=== PATIENT | female | born 1990 | race Caucasian/White ===

== ENCOUNTER → 2017-03-18 | Outpatient (CLI) | payer BC ==
[~2017-03-18] MED LIST: BCPILLS PO; ESCI1TAB10 PO; LISI-461 PO
== END | disposition home or self-care (01) ==
LOC: C.PAPS 14:48
PROVIDERS: ATTEND Physician Assistant
DX: Z01.419 Encounter for gynecological examination (general) (routine) without abnormal findings (principal)

== ENCOUNTER → 2018-01-09 | Outpatient (CLI) | payer OTHER ==
[2018-01-09 13:47] LABS: BASO % 0.3 %; BASO ABS # 0.02 K/uL (0-0.2); EOS % 1.2 %; EOS ABS # 0.09 K/uL (0-0.5); HEMATOCRIT 38.8 % (37-47); HEMOGLOBIN 13.2 g/dL (12.0-16.0); IG# 0.02 K/uL (0.00-0.02); LYMPH % 34.7 %; LYMPH ABS # 2.62 K/uL (1.2-3.4); MEAN CELL VOLUME 88.4 fL (80-100); MEAN CORPUSCULAR HEMOGLOBIN 30.1 pg (25-34); MEAN PLATELET VOLUME 9.1 fL (7.4-10.4); MONO % 7.7 %; MONO ABS # 0.58 K/uL (0.11-0.59); NEUT % 55.8 %; NEUT ABS # 4.22 K/uL (1.4-6.5); PLATELET COUNT 355 K/uL (130-400); RED CELL DISTRIBUTION WIDTH CV 13.4 % (11.5-14.5); RED CELL DISTRIBUTION WIDTH SD 43.4 fL (36.4-46.3); WHITE BLOOD COUNT 7.55 K/uL (4.8-10.8)
[2018-01-09 14:37] LABS: ALBUMIN 3.8 gm/dl (3.4-5.0); ALT/SGPT 21 U/L (12-78); AST/SGOT 20 U/L (15-37); BLOOD UREA NITROGEN 9 mg/dl (7-18); CALCIUM 8.8 mg/dl (8.5-10.1); CARBON DIOXIDE 26 mmol/L (21-32); CREATININE 0.77 mg/dl (0.60-1.20); GLUCOSE 81 mg/dl (70-99); POTASSIUM 3.9 mmol/L (3.5-5.1); SODIUM 136 mmol/L (136-145)
[2018-01-09 14:48] LABS: ALKALINE PHOSPHATASE 85 U/L (45-117); CHOLESTEROL 173 mg/dl (0-200); LDL CHOLESTEROL CALCULATED 96 mg/dl; TOTAL PROTEIN 7.6 gm/dl (6.4-8.2)
== END | disposition home or self-care (01) ==
LOC: C.LAB1850 12:25
PROVIDERS: ATTEND Neuromusculoskeletal Medicine & OMM
DX: Z00.00 Encounter for general adult medical examination without abnormal findings (principal); I10 Essential (primary) hypertension; E66.9 Obesity, unspecified

== ENCOUNTER 2022-03-05 07:29 | Inpatient (IN) ==
[2022-03-05] MEDS ORDERED: OXYTOCIN 30 UNITS/500 ML BAG IV PRN ×2 (08:07)
[2022-03-05 08:35] LABS: Hematocrit (blood only) 33.4 % (37-47); Hemoglobin 11.1 g/dL (12.0-16.0); Mean Corpuscular Hemoglobin 28.6 pg (25-34); Mean Corpuscular Hgb Conc 33.2 g/dL (32-36); Mean Corpuscular Volume 86.1 fL (80-100); Mean Platelet Volume 9.4 fL (7.4-10.4); Platelet Count 294 K/uL (130-400); RDW Coefficient of Variation 14.7 % (11.5-14.5); RDW Standard Deviation 45.6 fL (36.4-46.3); Red Blood Count 3.88 M/uL (4.2-5.4); White Blood Count 10.93 K/uL (4.8-10.8)
[2022-03-05 08:59] LABS: Creatinine Clr Calc Pharmacy 168.7 ml/min; Est GFR (African American) 137.6 ml/min; Est GFR (Non-African American) 118.7 ml/min
--- NOTE | 2022-03-05 09:15 | History & Physical Report ---
Date of Service March 05, 2022 Assessment & Plan (1) Insulin controlled gestational diabetes mellitus (GDM) during : (2) Chronic hypertension affecting : (3) Hypothyroid in , antepartum: Plan: 31 y/o at 38 4/7 wga presents for IOL for cHTN VSS Fetus cat 1 Labor - will start pit cHTN on meds - PET labs normal today, continue labetalol A2GDM - q1h BG to start, can space out to q2 if normal after few hours GBS neg epidural PRN Admission and Anticipated Discharge Date Admission Date: March 05, 2022 History of Present Illness Chief Complaint: IOL Primary Care Provider: Keyona Pyle MD 31 y/o at 38 4/7 presents for IOL cHTN on meds. Also c/b A2GDM, obesity, hypothyroid. 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 Hx: G1 SAB 2019 G2 current monthly cycles on metformin 02/2020 neg octest Denies hx STIs Allergies Allergy/AdvReac Type Severity Reaction Status Date / Time No Known Drug Allergies Allergy Verified 03/04/22 09:38 Home Medications Medication Instructions Recorded Confirmed Type prenat.vits,maria luisa,[id number] 1 tab PO DAILY 08/13/21 03/05/22 History acetone (urine) test (Ketone Urine #50 ea 09/07/21 03/04/22 Rx Test) blood sugar diagnostic (OneTouch #150 ea 09/07/21 03/04/22 Rx Verio test strips) blood-glucose meter (OneTouch #1 ea 09/07/21 03/04/22 Rx Verio Reflect Meter) lancets 33 gauge (OneTouch Delica #150 ea 09/07/21 03/04/22 Rx Plus Lancet) aspirin 81 mg tablet,delayed 81 mg PO DAILY 10/02/21 03/05/22 History release (Adult Low Dose Aspirin) levothyroxine 75 mcg tablet 75 mcg PO DAILY #90 tab 10/22/21 03/05/22 Rx (Synthroid) labetalol 100 mg tablet 100 mg PO DAILY #90 tab 12/06/21 03/05/22 Rx pen needle, diabetic 32 gauge x #100 ea 01/17/22 03/04/22 Rx " (BD Ultra-Fine Ely Pen Needle) escitalopram oxalate 20 mg tablet 20 mg PO DAILY #90 tab 02/12/22 03/05/22 Rx albuterol sulfate 90 mcg/actuation See Rx Instructions INHALATION 03/04/22 03/05/22 History aerosol inhaler .INHALE 1 TO 2 PUFFS PRN insulin NPH isoph U-100 human 100 40 unit SUBCUT .qHS 03/04/22 03/05/22 History unit/mL (3 mL) subcutaneous pen (Novolin N Flexpen) Patient History Medical History Anxiety Asthma Depression with anxiety History of chicken pox History of PCOS Hypertension Prediabetes Surgical History H/O wisdom tooth extraction History of incision and drainage Pilonidal cyst Family History Father Hypertension Mother Anxiety Pre-diabetes Thyroid disease Grandfather Myocardial infarction Grandmother Myocardial infarction Brother No problems noted. 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 Beliefs That Will Affect Care: Tenriism marital status: marital status details: Isaak Martinez (33) [phone] Current Living Situation: Spouse Current Living Situation Comment: Isaak- current occupational status: employed 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 Other Information That Helps Us Care for You: No Feels Safe at Home: Yes Safety Concerns: Feels Safe At This Time Childhood Exposure to Second-Hand Smoke: No Dental Care, Regularly: Yes Physical Activity Frequency: 3-4 Times per Week Seatbelt Use: always Sunscreen Use: Yes Assistive Devices: None Physical Exam Genitourinary: OB Exam Abdomen: + vertex (confirmed by BSUS) and + estimated weight (7-8) Manual OB Exam: + cervical dilation 3 cm, + cervical effacement 50% and + station -2 OB Exam Monitor Tracing: + external FHT monitor used, + external uterine monitor used (irreg ctx) and + category I (130/mod/+accel/-decel) Results & Data ([facility]) Vital Signs (Past 12 Hours) Vital Signs Temp Pulse Resp BP 03/05/22 08:00 95 H 131/82 03/05/22 07:51 98.6 F 18 Laboratory Results OB Labs: Blood Type O Positive 08/20/21 Antibody Screen NEGATIVE 08/20/21 Hemoglobin 11.7 g/dL (11.7-15.5) 01/15/22 Hematocrit 36.1 % (35.0-45.0) 01/15/22 Mean Corpuscular Volume 89.4 fL (80-100) 08/20/21 Platelet Count 445 K/uL (130-400) H 08/20/21 Rubella IgG Antibody Immune (Immune) 08/20/21 Rapid Plasma Reagin Nonreactive (Nonreactive) 08/20/21 Hepatitis B Surface Antigen Neg (Neg) 08/20/21 HIV (1&2) Ab and P24 Ag, 4th Gener Neg (Neg) 08/20/21 Maternal Serum Alpha Fetoprotein 29.9 ng/mL 10/04/21 OB Optional Labs: Chlamydia trachomatis RNA NOT DETECTED (NOT DETECTED) 08/20/21 Neisseria gonorrhoeae RNA NOT DETECTED (NOT DETECTED) 08/20/21 Thyroid Stimulating Hormone (TSH) 1.690 uIu/ml (0.300-4.500) 08/20/21 Alpha Fetoprotein Triple Screen SEE NOTE 10/04/21 Labs Reviewed: low risk cfdna neg cf/sma GBS neg Diagnostic Findings 02/08 EFW 84%, post plac Coding Level of Care Code None Diagnoses Insulin controlled gestational diabetes mellitus (GDM) during O24.414 Chronic hypertension affecting O10.919 Hypothyroid in , antepartum O99.280; E03.9
[2022-03-05] MEDS: LACTATED RINGER'S 1,000 ML IV PRN ×5 (09:22→23:13)
[2022-03-05] MEDS ORDERED: ePHEDrine sulfate 50 MG/ML AMP ONE (11:22)
[2022-03-05] MEDS ORDERED: BUPIVACAINE 0.25% 30 ML VIAL ONE ×2 (11:23→21:26)
[2022-03-05] MEDS ORDERED: fentaNYL citrate 100 MCG/2 ML VIAL ONE ×3 (11:23→21:26)
[2022-03-05] MEDS ORDERED: SODIUM CHLORIDE 0.9% INJ 10 ML VIAL ONE (11:23)
[2022-03-05] MEDS ORDERED: fentaNYL 2MCG/ML ROPIVACAINE 1.25MG/ML 100 ML BAG EPI ONE (11:24)
--- NOTE | 2022-03-05 12:39 | Anesthesiology Consultation ---
Date of Service March 05, 2022 Assessment & Plan Chart Review Chart Review: Acceptable Risk for Labor Epidural Consults Requested none History Height/Weight Height: 5 ft 5 in Weight: 122.924 kg Allergies Allergy/AdvReac Type Severity Reaction Status Date / Time No Known Drug Allergies Allergy Verified 03/04/22 09:38 Medications Home Medications Medication Instructions Recorded Confirmed Last Taken prenat.vits,maria luisa,[id number]-[id number] 1 tab PO DAILY 08/13/21 03/05/22 03/05/22 06:00 acetone (urine) test (Ketone Urine #50 ea 09/07/21 03/04/22 Unknown Test) blood sugar diagnostic (OneTouch #150 ea 09/07/21 03/04/22 Unknown Verio test strips) blood-glucose meter (OneTouch #1 ea 09/07/21 03/04/22 Unknown Verio Reflect Meter) lancets 33 gauge (OneTouch Delica #150 ea 09/07/21 03/04/22 Unknown Plus Lancet) aspirin 81 mg tablet,delayed 81 mg PO DAILY 10/02/21 03/05/22 03/05/22 06:00 release (Adult Low Dose Aspirin) levothyroxine 75 mcg tablet 75 mcg PO DAILY #90 tab 10/22/21 03/05/22 03/05/22 0 6:00 (Synthroid) labetalol 100 mg tablet 100 mg PO DAILY #90 tab 12/06/21 03/05/22 03/05/22 06:00 pen needle, diabetic 32 gauge x #100 ea 01/17/22 03/04/22 Unknown 532" (BD Ultra-Fine Ely Pen Needle) escitalopram oxalate 20 mg tablet 20 mg PO DAILY #90 tab 02/12/22 03/05/22 06:00 albuterol sulfate 90 mcg/actuation See Rx Instructions INHALATION 03/04/22 03/05/22 Unknown aerosol inhaler .INHALE 1 TO 2 PUFFS PRN insulin NPH isoph U-100 human 100 40 unit SUBCUT .qHS 03/04/22 03/05/22 03/04/22 18:00 unit/mL (3 mL) subcutaneous pen (Novolin N Flexpen) Active Medications Generic Name Dose Route Start Last Admin Trade Name Freq PRN Reason Stop Dose Admin Oxytocin 30 units in 500 mls @ 8 mls/hr 03/05/22 08:07 03/05/22 11:05 Pitocin IV 03/07/22 08:06 0.48 units/hr .Q24H PRN 8 mls/hr Labor Induction/Augmentation Titration Protocol 0.48 UNITS/HR Lactated Ringer's 1,000 mls @ 125 mls/hr 03/05/22 08:07 03/05/22 12:30 Lr IV 03/07/22 08:06 999 mls/hr .Q8H PRN Administration L&D Protocol Protocol Past Medical History Medical History Anxiety Asthma Depression with anxiety History of chicken pox History of PCOS Hypertension Prediabetes Past Family History Family History Father Hypertension Mother Anxiety Pre-diabetes Thyroid disease Grandfather Myocardial infarction Grandmother Myocardial infarction Brother No problems noted. Denies family history of Ovarian cancer Prostate cancer Breast cancer Colorectal cancer Past Surgical History Surgical History H/O wisdom tooth extraction History of incision and drainage Pilonidal cyst Social History Smoking Status: Never smoker Do You Dip or Chew Tobacco: No Hx Alcohol Use: No Hx Substance Use: No Physical Exam Vital Signs Last Vital Signs Temp 36.9 C 03/05/22 11:47 Pulse 82 03/05/22 12:36 Resp 18 03/05/22 11:47 BP 135/78 03/05/22 12:36 Pulse Ox 99 03/05/22 12:35 Testing Laboratory Results 03/05/22 08:14 03/05/22 08:14 Blood Type O Positive 03/05/22 08:14 Antibody Screen NEGATIVE 03/05/22 08:14 03/05/22 03/05/22 03/05/22 10:57 09:56 08:25 POC Glucose 98 75 86
[2022-03-05] MEDS ORDERED: ePHEDrine sulfate 50 MG/ML AMP IV PRN (12:41)
[2022-03-05] MEDS ORDERED: diphenhydrAMINE 50 MG/ML VIAL IV PRN (12:41)
[2022-03-05] MEDS ORDERED: NALOXONE HCL 1 MG in SODIUM CHLORIDE 0.9% 1000ML 1,000 ML IV PRN (12:41)
[2022-03-05] MEDS ORDERED: NALBUPHINE HCL INJ 10 MG/ML AMP IV PRN (12:41)
[2022-03-05] MEDS ORDERED: NALOXONE HCL 0.4 MG/1 ML VIAL/CARP IV PRN (12:41)
--- NOTE | 2022-03-05 15:03 | Labor Progress Brief Note ---
Date of Service March 05, 2022 Subjective Comfortable w/ epidural Assessment & Plan (1) Insulin controlled gestational diabetes mellitus (GDM) during : (2) Chronic hypertension affecting : (3) Hypothyroid in , antepartum: Plan: 31 y/o at 38 4/7 wga presents for IOL for cHTN VSS Fetus cat 1 Labor - continue pit augmentation cHTN on meds - PET labs normal today, continue labetalol A2GDM - q2h BG doing well, q1 in active labor GBS neg epidural in place Admission and Anticipated Discharge Date Admission Date: March 05, 2022 Physical Exam Genitourinary: Manual OB Exam: + cervical dilation (5-6), + cervical effacement 70%, + station -2 and + amniotic fluid (membranes popped upon insertion of fingers for exam for mec fluid) OB Exam Monitor Tracing: + external FHT monitor used, + external uterine monitor used (q3) and + category I (130/mod/+accel/-decel) Results & Data ([facility]) Vital Signs (Past 12 Hours) Vital Signs Temp Pulse Resp BP Pulse Ox 03/05/22 14:55 100 H 98 03/05/22 14:52 82 143/76 H 03/05/22 14:50 84 98 03/05/22 14:45 73 97 03/05/22 14:40 75 96 03/05/22 14:37 70 136/74 03/05/22 14:35 70 97 03/05/22 14:30 73 97 03/05/22 14:25 73 96 03/05/22 14:22 74 136/74 03/05/22 14:20 73 97 03/05/22 14:15 76 97 03/05/22 14:10 72 97 03/05/22 14:08 71 137/78 03/05/22 14:05 73 98 03/05/22 14:00 72 98 03/05/22 13:55 71 97 03/05/22 13:52 71 134/80 03/05/22 13:50 72 97 03/05/22 13:45 75 97 03/05/22 13:40 73 99 03/05/22 13:35 80 147/69 H 99 03/05/22 13:34 75 171/79 H 03/05/22 13:30 83 16 99 03/05/22 13:28 75 139/84 03/05/22 13:25 74 98 03/05/22 13:23 76 144/78 H 03/05/22 13:20 74 98 03/05/22 13:18 20 03/05/22 13:17 77 145/75 H 03/05/22 13:15 74 99 03/05/22 13:13 80 141/76 H 03/05/22 13:10 102 H 98 03/05/22 13:07 80 144/79 H 03/05/22 13:05 81 16 99 03/05/22 13:02 75 151/79 H 03/05/22 13:00 77 98 03/05/22 12:58 79 143/81 H 03/05/22 12:55 83 18 99 03/05/22 12:50 86 100 03/05/22 12:48 85 147/81 H 03/05/22 12:45 90 99 03/05/22 12:40 86 18 145/82 H 99 03/05/22 12:38 85 140/79 03/05/22 12:36 82 135/78 03/05/22 12:35 86 18 99 03/05/22 12:34 84 136/78 03/05/22 12:32 85 125/80 03/05/22 12:31 85 144/82 H 03/05/22 12:30 86 16 99 03/05/22 12:29 86 140/87 03/05/22 12:26 86 144/82 H 03/05/22 12:25 85 143/85 H 99 03/05/22 12:22 89 157/89 H 03/05/22 12:21 18 03/05/22 12:20 88 149/80 H 98 03/05/22 12:19 90 153/80 H 03/05/22 12:18 18 03/05/22 12:16 86 131/81 03/05/22 12:15 89 99 03/05/22 12:14 90 131/80 03/05/22 12:10 89 99 03/05/22 12:05 88 99 03/05/22 12:00 89 99 03/05/22 11:55 85 98 03/05/22 11:50 87 99 03/05/22 11:47 98.4 F 18 03/05/22 10:24 82 144/95 H 0607/22 09:24 85 140/97 03/05/22 08:00 95 H 131/82 03/05/22 07:51 98.6 F 18 Coding Level of Care Code None Diagnoses Insulin controlled gestational diabetes mellitus (GDM) during O24.414 Chronic hypertension affecting O10.919 Hypothyroid in , antepartum O99.280; E03.9
[2022-03-05] MEDS ORDERED: LIDOCAINE 2% MPF LOCAL 5 ML VIAL INFIL ONE (16:56)
--- NOTE | 2022-03-05 17:21 | Labor Progress Brief Note ---
Date of Service March 05, 2022 Subjective Became uncomfortable again, looks like there was issue w/ epidural catheter but just got rebolus Assessment & Plan (1) Insulin controlled gestational diabetes mellitus (GDM) during : (2) Chronic hypertension affecting : (3) Hypothyroid in , antepartum: Plan: 31 y/o at 38 4/7 wga presents for IOL for cHTN VSS Fetus cat 1 Labor - continue pit augmentation, forebag of arom performed. SVE not changed significantly but hopefully forebag will help cHTN on meds - PET labs normal today, continue labetalol daily A2GDM - q2h BG doing well, q1 in active labor GBS neg epidural in place Admission and Anticipated Discharge Date Admission Date: March 05, 2022 Physical Exam Genitourinary: Manual OB Exam: + cervical dilation (5-6), + cervical effacement 70%, + station -2 and + amniotic fluid (forebag palpated and ruptured) OB Exam Monitor Tracing: + external FHT monitor used, + external uterine monitor used (q3) and + category I (125/mod/+accel/-decel) Results & Data ([facility]) Vital Signs (Past 12 Hours) Vital Signs Temp Pulse Resp BP Pulse Ox 03/05/22 17:15 90 97 03/05/22 17:13 94 H 94 03/05/22 17:10 85 97 03/05/22 17:05 87 146/85 H 97 03/05/22 17:00 92 H 98 03/05/22 16:56 92 H 84 L 03/05/22 16:55 90 98 03/05/22 16:50 99 H 98 03/05/22 16:45 89 99 03/05/22 16:40 91 H 98 03/05/22 16:35 89 173/95 H 99 03/05/22 16:30 85 99 03/05/22 16:25 84 98 03/05/22 16:20 84 99 03/05/22 16:15 83 98 03/05/22 16:10 99 H 97 03/05/22 16:05 85 141/86 H 99 03/05/22 16:00 90 16 98 03/05/22 15:55 79 99 03/05/22 15:50 78 97 03/05/22 15:45 76 98 03/05/22 15:40 86 98 03/05/22 15:35 87 143/71 H 98 03/05/22 15:30 84 16 98 03/05/22 15:25 84 100 03/05/22 15:20 85 99 03/05/22 15:15 85 99 03/05/22 15:10 79 100 03/05/22 15:05 79 99 03/05/22 15:00 98.4 F 85 18 99 03/05/22 14:55 100 H 98 03/05/22 14:52 82 143/76 H 03/05/22 14:50 84 98 03/05/22 14:45 73 97 03/05/22 14:40 75 96 03/05/22 14:37 70 136/74 03/05/22 14:35 70 97 03/05/22 14:30 73 18 97 03/05/22 14:25 73 96 03/05/22 14:22 74 136/74 03/05/22 14:20 73 97 03/05/22 14:15 76 97 03/05/22 14:10 72 97 03/05/22 14:08 71 137/78 03/05/22 14:05 73 98 03/05/22 14:00 72 16 98 03/05/22 13:55 71 97 03/05/22 13:52 71 134/80 03/05/22 13:50 72 97 03/05/22 13:45 75 97 03/05/22 13:40 73 99 03/05/22 13:35 80 147/69 H 99 03/05/22 13:34 75 171/79 H 03/05/22 13:30 83 16 99 03/05/22 13:28 75 139/84 03/05/22 13:25 74 98 03/05/22 13:23 76 144/78 H 03/05/22 13:20 74 98 03/05/22 13:18 20 03/05/22 13:17 77 145/75 H 03/05/22 13:15 74 99 03/05/22 13:13 80 141/76 H 03/05/22 13:10 102 H 98 03/05/22 13:07 80 144/79 H 03/05/22 13:05 81 16 99 03/05/22 13:02 75 151/79 H 03/05/22 13:00 77 98 03/05/22 12:58 79 143/81 H 03/05/22 12:55 83 18 99 03/05/22 12:50 86 100 03/05/22 12:48 85 147/81 H 03/05/22 12:45 90 99 03/05/22 12:40 86 18 145/82 H 99 03/05/22 12:38 85 140/79 03/05/22 12:36 82 135/78 03/05/22 12:35 86 18 99 03/05/22 12:34 84 136/78 03/05/22 12:32 85 125/80 03/05/22 12:31 85 144/82 H 03/05/22 12:30 86 16 99 03/05/22 12:29 86 140/87 03/05/22 12:26 86 144/82 H 03/05/22 12:25 85 143/85 H 99 03/05/22 12:22 89 157/89 H 03/05/22 12:21 18 03/05/22 12:20 88 149/80 H 98 03/05/22 12:19 90 153/80 H 03/05/22 12:18 18 03/05/22 12:16 86 131/81 03/05/22 12:15 89 99 03/05/22 12:14 90 131/80 03/05/22 12:10 89 99 03/05/22 12:05 88 99 03/05/22 12:00 89 99 03/05/22 11:55 85 98 03/05/22 11:50 87 99 03/05/22 11:47 98.4 F 18 03/05/22 10:24 82 144/95 H 03/05/22 09:24 85 140/97 03/05/22 08:00 95 H 131/82 03/05/22 07:51 98.6 F 18 Coding Level of Care Code None Diagnoses Insulin controlled gestational diabetes mellitus (GDM) during O24.414 Chronic hypertension affecting O10.919 Hypothyroid in , antepartum O99.280; E03.9
[2022-03-05] MEDS ORDERED: NURSING L&D Epidural Breakthrough Pain Update ONE (17:33)
[2022-03-05] MEDS ORDERED: fentaNYL 2MCG/ML ROPIVACAINE 1.25MG/ML 100 ML BAG EPI PRN (18:43)
[2022-03-05] MEDS: fentaNYL 2MCG/ML ROPIVACAINE 1.25MG/ML 100 ML BAG EPI PRN (18:48)
--- NOTE | 2022-03-05 19:19 | Labor Progress Brief Note ---
Date of Service March 05, 2022 Subjective Called by nursing due to decel following re-bolus of epidural with subsequent relative hypotension and severe nausea. Pit turned off during this time, IVF, O2 given Assessment & Plan (1) Insulin controlled gestational diabetes mellitus (GDM) during : (2) Chronic hypertension affecting : (3) Hypothyroid in , antepartum: Plan: 31 y/o at 38 4/7 wga presents for IOL for cHTN VSS Fetus cat 1 Labor - pit was d/c'd, FSE,IUPC placed to aid in monitoring fetus during resuscitation and recovered to cat 1. Will allow to further recover and then ok to restart pit. nursing notes pit was halved prior to the decel due to tachysystole cHTN on meds - PET labs normal today, continue labetalol daily A2GDM - q2h BG doing well, q1 in active labor GBS neg epidural in place Admission and Anticipated Discharge Date Admission Date: March 05, 2022 Physical Exam Genitourinary: Manual OB Exam: + cervical dilation (5-6), + cervical effacement 70% and + station -1 OB Exam Monitor Tracing: + external FHT monitor used, + external uterine monitor used (q3) and + category II (125/mod/+accel/decel into 60s following large emesis and BP 109) FSE/IUPC placed during this time Results & Data ([facility]) Vital Signs (Past 12 Hours) Vital Signs Temp Pulse Resp BP Pulse Ox 03/05/22 19:15 84 100 03/05/22 19:10 88 100 03/05/22 19:06 105 H 109/78 03/05/22 19:05 88 100 03/05/22 19:00 92 H 100 03/05/22 18:59 93 H 119/64 03/05/22 18:55 90 99 03/05/22 18:53 84 109/56 L 03/05/22 18:50 110 H 97 03/05/22 18:49 76 91 03/05/22 18:45 90 98 03/05/22 18:40 88 99 03/05/22 18:35 86 136/79 98 03/05/22 18:30 91 H 16 97 03/05/22 18:27 90 176/82 H 03/05/22 18:26 93 H 94 03/05/22 18:25 89 99 03/05/22 18:24 91 H 202/103 H 03/05/22 18:20 88 100 03/05/22 18:15 84 98 03/05/22 18:10 86 98 03/05/22 18:05 99 H 98 03/05/22 18:04 96 H 175/110 H 03/05/22 18:01 18 03/05/22 18:00 90 98 03/05/22 17:55 87 98 03/05/22 17:50 91 H 98 03/05/22 17:45 79 98 03/05/22 17:40 88 97 03/05/22 17:35 82 139/85 97 03/05/22 17:30 87 16 97 03/05/22 17:25 90 97 03/05/22 17:20 88 98 03/05/22 17:19 90 94 03/05/22 17:15 90 97 03/05/22 17:13 94 H 94 03/05/22 17:10 85 97 03/05/22 17:05 87 146/85 H 97 03/05/22 17:00 92 H 18 98 03/05/22 16:56 92 H 84 L 03/05/22 16:55 90 98 03/05/22 16:50 99 H 98 03/05/22 16:45 89 99 03/05/22 16:40 91 H 98 03/05/22 16:35 89 173/95 H 99 03/05/22 16:30 85 20 99 03/05/22 16:25 84 98 03/05/22 16:20 84 99 03/05/22 16:15 83 98 03/05/22 16:10 99 H 97 03/05/22 16:05 85 141/86 H 99 03/05/22 16:00 90 18 98 03/05/22 15:55 79 99 03/05/22 15:50 78 97 03/05/22 15:45 76 98 03/05/22 15:40 86 98 03/05/22 15:35 87 143/71 H 98 03/05/22 15:30 84 16 98 03/05/22 15:25 84 100 03/05/22 15:20 85 99 03/05/22 15:15 85 99 03/05/22 15:10 79 100 03/05/22 15:05 79 99 03/05/22 15:00 98.4 F 85 18 99 03/05/22 14:55 100 H 98 03/05/22 14:52 82 143/76 H 03/05/22 14:50 84 98 03/05/22 14:45 73 97 03/05/22 14:40 75 96 03/05/22 14:37 70 136/74 03/05/22 14:35 70 97 03/05/22 14:30 73 18 97 03/05/22 14:25 73 96 03/05/22 14:22 74 136/74 03/05/22 14:20 73 97 03/05/22 14:15 76 97 03/05/22 14:10 72 97 03/05/22 14:08 71 137/78 03/05/22 14:05 73 98 03/05/22 14:00 72 16 98 03/05/22 13:55 71 97 03/05/22 13:52 71 134/80 03/05/22 13:50 72 97 03/05/22 13:45 75 97 03/05/22 13:40 73 99 03/05/22 13:35 80 147/69 H 99 03/05/22 13:34 75 171/79 H 03/05/22 13:30 83 16 99 03/05/22 13:28 75 139/84 03/05/22 13:25 74 98 03/05/22 13:23 76 144/78 H 03/05/22 13:20 74 98 03/05/22 13:18 20 03/05/22 13:17 77 145/75 H 03/05/22 13:15 74 99 03/05/22 13:13 80 141/76 H 03/05/22 13:10 102 H 98 03/05/22 13:07 80 144/79 H 03/05/22 13:05 81 16 99 03/05/22 13:02 75 151/79 H 03/05/22 13:00 77 98 03/05/22 12:58 79 143/81 H 03/05/22 12:55 83 18 99 03/05/22 12:50 86 100 03/05/22 12:48 85 147/81 H 03/05/22 12:45 90 99 03/05/22 12:40 86 18 145/82 H 99 06/07/22 12:38 85 140/79 03/05/22 12:36 82 135/78 03/05/22 12:35 86 18 99 03/05/22 12:34 84 136/78 03/05/22 12:32 85 125/80 03/05/22 12:31 85 144/82 H 03/05/22 12:30 86 16 99 03/05/22 12:29 86 140/87 03/05/22 12:26 86 144/82 H 03/05/22 12:25 85 143/85 H 99 03/05/22 12:22 89 157/89 H 03/05/22 12:21 18 03/05/22 12:20 88 149/80 H 98 03/05/22 12:19 90 153/80 H 03/05/22 12:18 18 03/05/22 12:16 86 131/81 03/05/22 12:15 89 99 03/05/22 12:14 90 131/80 03/05/22 12:10 89 99 03/05/22 12:05 88 99 03/05/22 12:00 89 99 03/05/22 11:55 85 98 03/05/22 11:50 87 99 03/05/22 11:47 98.4 F 18 03/05/22 10:24 82 144/95 H 03/05/22 09:24 85 140/97 03/05/22 08:00 95 H 131/82 03/05/22 07:51 98.6 F 18 Coding Level of Care Code None Diagnoses Insulin controlled gestational diabetes mellitus (GDM) during O24.414 Chronic hypertension affecting O10.919 Hypothyroid in , antepartum O99.280; E03.9
--- NOTE | 2022-03-05 22:07 | Communication Note ---
Date of Service: March 05, 2022 Called due to decel following replacement of epidural w/ combined spinal- epidural. Normotensive prior to procedure however was noted to be relatively hypotensive following and subsequent decel was noted. BP was treated and fetus did eventually slowly recover, pitocin was d/c'd during this time again. SVE c/w recent nursing exam 6+/75/-2 but much stretchier than my prior exam. Will allow both mom and fetus to recover then attempt pit restart
[2022-03-06] MEDS: fentaNYL 2MCG/ML ROPIVACAINE 1.25MG/ML 100 ML BAG EPI PRN ×2 (00:13→04:49)
[2022-03-06] MEDS ORDERED: LIDOCAINE 2% MPF LOCAL 5 ML VIAL INFIL ONE ×3 (01:03→06:50)
[2022-03-06] MEDS ORDERED: fentaNYL citrate 100 MCG/2 ML VIAL ONE ×3 (01:03→06:59)
--- NOTE | 2022-03-06 01:38 | Communication Note ---
Date of Service: March 06, 2022 Called for pt c/o pain. Pt reportedly 8cm dilated. VSS. Bolused catheter with 2% lidocaine 5c plus fentanyl 100mcg with relief.
--- NOTE | 2022-03-06 03:39 | Communication Note ---
Date of Service: March 06, 2022 Called for pt c/o pain. VSS. Bolused epidural with 2% lidocaine plus fentanyl 100mcg with relief.
[2022-03-06] MEDS ORDERED: LIDOCAINE 2%/EPINEPHRINE 1:200,000 20 ML SDV ONE (04:32)
--- NOTE | 2022-03-06 05:48 | Labor Progress Brief Note ---
Date of Service March 06, 2022 Subjective Delayed entry due to care and coordination of care. Pt has required multiple re-boluses for pain relief overnight, making it very difficult to reposition comfortably and titrate pitocin. Pitocin was restarted following resuscitation after cse and has had intermittent periods of adequacy Assessment & Plan (1) Insulin controlled gestational diabetes mellitus (GDM) during : (2) Chronic hypertension affecting : (3) Hypothyroid in , antepartum: Plan: 31 y/o at 38 4/7 wga presents for IOL for cHTN VSS Fetus cat 1 Labor - pit at 6, contractions as noted above. This last re-dose got 2 doses and has felt better. BP was elevated during times of severe pain but when resting is appropriately mild range. Cervix has made progression in station but has been limited as pitocin has been off for extended periods and pt has been in significant pain. She is not sure that she can continue with this process due to the pain. Discussed CS, may need to undergo general given redoses but would discuss w/ anesthesia. Discussed seeing what happens w/ repositioning and increasing pitocin as now having some relief and she is ok with this for now cHTN on meds - PET labs normal today, continue labetalol daily. BPs elevated during severe pain, but mild range in b/w A2GDM - q1h - elevated recently but pt has been in a lot of pain during this ti me GBS neg epidural in place Admission and Anticipated Discharge Date Admission Date: March 05, 2022 Physical Exam Genitourinary: OB Exam Abdomen: + vertex (confirmed by BSUS) Manual OB Exam: + cervical dilation (6-7), + cervical effacement 70% and + station 0 OB Exam Monitor Tracing: + scalp electrode used, + intra-uterine pressure catheter used (q5, periods of adequacy but not consistent) and + category I Results & Data ([facility]) Vital Signs (Past 12 Hours) Vital Signs Temp Pulse Resp BP Pulse Ox 03/06/22 05:39 106 H 149/79 H 03/06/22 05:37 120 H 97 03/06/22 05:32 114 H 93 03/06/22 05:27 104 H 96 03/06/22 05:22 114 H 80 L 03/06/22 05:19 105 H 139/71 03/06/22 05:17 114 H 95 03/06/22 05:16 110 H 141/72 H 03/06/22 05:13 101 H 146/80 H 03/06/22 05:12 108 H 96 03/06/22 05:10 111 H 145/93 H 94 03/06/22 05:07 104 H 146/84 H 97 03/06/22 05:05 119 H 90 03/06/22 05:04 105 H 151/89 H 03/06/22 05:02 116 H 145/67 H 98 03/06/22 04:58 112 H 157/91 H 94 03/06/22 04:57 106 H 95 03/06/22 04:55 101 H 155/85 H 03/06/22 04:52 107 H 160/88 H 95 03/06/22 04:50 114 H 86 L 03/06/22 04:49 113 H 166/99 H 03/06/22 04:48 100 H 162/91 H 03/06/22 04:47 105 H 98 03/06/22 04:46 116 H 178/111 H 03/06/22 04:45 102 H 94 03/06/22 04:43 105 H 175/101 H 03/06/22 04:42 106 H 96 03/06/22 04:40 115 H 176/105 H 03/06/22 04:37 112 H 97 03/06/22 04:36 103 H 161/92 H 03/06/22 04:33 114 H 164/95 H 93 03/06/22 04:32 103 H 97 03/06/22 04:27 104 H 96 03/06/22 04:23 102 H 93 03/06/22 04:22 102 H 97 03/06/22 04:20 109 H 175/98 H 03/06/22 04:17 109 H 96 03/06/22 04:16 116 H 91 03/06/22 04:14 112 H 176/92 H 03/06/22 04:12 103 H 97 03/06/22 04:07 104 H 97 03/06/22 04:05 114 H 191/93 H 03/06/22 04:02 107 H 211/93 H 94 03/06/22 03:59 100 H 175/80 H 89 L 03/06/22 03:57 111 H 99 03/06/22 03:56 96 H 173/81 H 03/06/22 03:53 102 H 175/81 H 03/06/22 03:52 107 H 98 03/06/22 03:51 99 H 94 03/06/22 03:50 97 H 171/78 H 03/06/22 03:47 104 H 179/86 H 98 03/06/22 03:44 93 H 171/90 H 03/06/22 03:42 108 H 97 03/06/22 03:41 100 H 163/87 H 94 03/06/22 03:38 103 H 170/92 H 03/06/22 03:37 98 H 97 03/06/22 03:35 98.4 F 96 H 18 165/82 H 03/06/22 03:32 96 H 97 03/06/22 03:31 108 H 179/106 H 03/06/22 03:29 95 H 94 03/06/22 03:26 104 H 97 03/06/22 03:25 107 H 161/87 H 03/06/22 03:23 105 H 89 L 03/06/22 03:21 104 H 98 03/06/22 03:18 108 H 180/115 H 03/06/22 03:16 107 H 98 03/06/22 03:14 114 H 90 03/06/22 03:11 110 H 98 03/06/22 03:06 115 H 98 03/06/22 03:05 94 H 94 03/06/22 03:03 100 H 184/93 H 03/06/22 03:01 101 H 98 03/06/22 02:57 96 H 92 03/06/22 02:56 99 H 98 03/06/22 02:51 95 H 96 03/06/22 02:48 94 H 175/88 H 03/06/22 02:46 109 H 98 03/06/22 02:45 96 H 94 03/06/22 02:41 110 H 97 03/06/22 02:36 100 H 98 03/06/22 02:33 95 H 164/95 H 03/06/22 02:31 107 H 98 03/06/22 02:26 106 H 98 03/06/22 02:21 96 H 94 03/06/22 02:19 96 H 92 03/06/22 02:17 99 H 171/91 H 03/06/22 02:16 99 H 96 03/06/22 02:12 96 H 167/97 H 03/06/22 02:11 100 H 97 03/06/22 02:10 97 H 170/100 H 03/06/22 02:07 104 H 182/101 H 03/06/22 02:06 96 H 97 03/06/22 02:04 100 H 172/102 H 03/06/22 02:01 90 96 03/06/22 01:56 102 H 99 03/06/22 01:55 98.4 F 03/06/22 01:51 104 H 98 03/06/22 01:46 93 H 99 03/06/22 01:44 93 H 162/94 H 03/06/22 01:41 89 160/94 H 97 03/06/22 01:38 88 151/92 H 03/06/22 01:36 97 H 99 03/06/22 01:35 86 149/91 H 03/06/22 01:34 94 H 91 03/06/22 01:33 94 H 155/99 H 03/06/22 01:31 97 H 98 03/06/22 01:29 87 147/90 H 93 03/06/22 01:26 97 H 148/88 H 98 03/06/22 01:23 85 150/91 H 03/06/22 01:21 97 H 156/90 H 100 03/06/22 01:17 99 H 146/83 H 03/06/22 01:16 94 H 98 03/06/22 01:14 100 H 161/87 H 03/06/22 01:11 108 H 167/91 H 98 03/06/22 01:08 102 H 162/82 H 03/06/22 01:06 111 H 100 03/06/22 01:01 110 H 94 03/06/22 01:00 98 H 18 163/85 H 03/06/22 00:56 104 H 76 L 03/06/22 00:53 104 H 93 03/06/22 00:51 101 H 97 03/06/22 00:46 99 H 147/83 H 97 03/06/22 00:44 105 H 89 L 03/06/22 00:41 108 H 96 03/06/22 00:39 100 H 146/68 H 03/06/22 00:37 107 H 181/88 H 93 06/08/22 00:36 100 H 189/96 H 03/06/22 00:35 105 H 98 03/06/22 00:34 103 H 182/94 H 03/06/22 00:31 109 H 173/87 H 80 L 03/06/22 00:30 105 H 96 03/06/22 00:26 100 H 86 L 03/06/22 00:25 105 H 96 03/06/22 00:20 106 H 95 03/06/22 00:19 101 H 89 L 03/06/22 00:15 102 H 168/98 H 97 03/06/22 00:14 99 H 86 L 03/06/22 00:10 104 H 97 03/06/22 00:07 104 H 88 L 03/06/22 00:05 104 H 96 03/06/22 00:01 101 H 90 03/06/22 00:00 102 H 162/97 H 98 03/05/22 23:55 107 H 96 03/05/22 23:53 116 H 91 03/05/22 23:50 110 H 94 03/05/22 23:48 110 H 92 03/05/22 23:45 111 H 167/81 H 99 03/05/22 23:40 104 H 98 03/05/22 23:35 103 H 98 03/05/22 23:30 107 H 18 97 03/05/22 23:29 109 H 167/76 H 03/05/22 23:26 112 H 163/72 H 03/05/22 23:25 110 H 97 03/05/22 23:23 106 H 179/78 H 03/05/22 23:20 105 H 160/75 H 99 03/05/22 23:17 112 H 156/69 H 03/05/22 23:15 107 H 99 03/05/22 23:14 106 H 152/80 H 03/05/22 23:11 103 H 151/72 H 03/05/22 23:10 99.1 F 106 H 18 99 03/05/22 23:08 101 H 156/72 H 03/05/22 23:05 103 H 127/70 99 03/05/22 23:02 102 H 124/70 03/05/22 23:00 103 H 18 99 03/05/22 22:59 96 H 127/72 03/05/22 22:56 100 H 124/73 03/05/22 22:55 97 H 98 03/05/22 22:53 91 H 122/76 03/05/22 22:50 97 H 119/65 98 03/05/22 22:47 96 H 129/62 03/05/22 22:45 96 H 98 03/05/22 22:44 100 H 126/65 03/05/22 22:41 96 H 123/58 L 03/05/22 22:40 95 H 98 03/05/22 22:38 99 H 126/60 03/05/22 22:35 96 H 133/63 99 03/05/22 22:32 102 H 143/56 H 90 03/05/22 22:30 86 99 03/05/22 22:29 87 153/80 H 03/05/22 22:26 82 152/76 H 03/05/22 22:25 85 100 03/05/22 22:23 84 152/77 H 03/05/22 22:20 84 154/76 H 100 03/05/22 22:17 83 152/74 H 03/05/22 22:15 86 100 03/05/22 22:14 88 158/92 H 03/05/22 22:11 93 H 153/84 H 03/05/22 22:10 89 100 03/05/22 22:08 86 158/81 H 03/05/22 22:05 91 H 160/77 H 100 03/05/22 22:02 102 H 149/70 H 03/05/22 22:00 104 H 100 03/05/22 21:59 109 H 150/78 H 03/05/22 21:56 115 H 150/80 H 03/05/22 21:55 116 H 100 03/05/22 21:54 125 H 143/74 H 03/05/22 21:51 116 H 105/63 03/05/22 21:50 110 H 97 03/05/22 21:47 86 91 03/05/22 21:45 80 97 03/05/22 21:44 71 110/59 L 03/05/22 21:41 76 112/57 L 03/05/22 21:40 80 99 03/05/22 21:38 90 124/72 03/05/22 21:35 90 126/72 99 03/05/22 21:32 110 H 122/58 L 03/05/22 21:30 98 H 99 03/05/22 21:29 91 H 137/67 03/05/22 21:26 93 H 145/74 H 03/05/22 21:25 91 H 100 03/05/22 21:23 86 141/72 H 03/05/22 21:20 96 H 140/82 100 03/05/22 21:17 90 159/84 H 03/05/22 21:15 99 H 100 03/05/22 21:14 90 159/89 H 03/05/22 21:11 91 H 167/90 H 03/05/22 21:10 90 100 03/05/22 21:08 90 155/86 H 03/05/22 21:05 91 H 99 03/05/22 21:04 90 166/77 H 03/05/22 21:02 91 H 180/97 H 03/05/22 21:00 93 H 99 03/05/22 20:59 94 H 157/95 H 03/05/22 20:55 96 H 150/90 H 99 03/05/22 20:50 94 H 96 03/05/22 20:45 86 99 03/05/22 20:40 85 98 03/05/22 20:35 93 H 99 03/05/22 20:34 87 150/85 H 03/05/22 20:30 87 99 03/05/22 20:25 85 98 03/05/22 20:20 86 97 03/05/22 20:15 90 99 03/05/22 20:10 87 99 03/05/22 20:05 95 H 143/75 H 99 03/05/22 20:00 88 100 03/05/22 19:55 85 98 03/05/22 19:50 83 98 03/05/22 19:45 81 98 03/05/22 19:40 81 98 03/05/22 19:35 89 131/63 100 03/05/22 19:30 91 H 100 03/05/22 19:25 94 H 100 03/05/22 19:20 98.8 F 87 18 100 03/05/22 19:15 84 100 03/05/22 19:10 88 100 03/05/22 19:06 105 H 109/78 03/05/22 19:05 88 100 03/05/22 19:01 20 03/05/22 19:00 92 H 100 03/05/22 18:59 93 H 119/64 03/05/22 18:55 90 99 03/05/22 18:53 84 109/56 L 03/05/22 18:50 110 H 97 03/05/22 18:49 76 91 03/05/22 18:45 90 98 03/05/22 18:40 88 99 03/05/22 18:35 86 136/79 98 03/05/22 18:30 91 H 16 97 03/05/22 18:27 90 176/82 H 03/05/22 18:26 93 H 94 03/05/22 18:25 89 99 03/05/22 18:24 91 H 202/103 H 03/05/22 18:20 88 100 03/05/22 18:15 84 98 03/05/22 18:10 86 98 03/05/22 18:05 99 H 98 03/05/22 18:04 96 H 175/110 H 03/05/22 18:01 18 03/05/22 18:00 90 98 03/05/22 17:55 87 98 03/05/22 17:50 91 H 98 03/05/22 17:45 79 98 03/05/22 17:40 88 97 Coding Level of Care Code None Diagnoses Insulin controlled gestational diabetes mellitus (GDM) during O24.414 Chronic hypertension affecting O10.919 Hypothyroid in , antepartum O99.280; E03.9
[2022-03-06] MEDS ORDERED: CITRIC ACID/SODIUM CITRATE 15 ML UDC PO SCH (06:00)
--- NOTE | 2022-03-06 06:35 | Labor Progress Brief Note ---
Date of Service March 06, 2022 Subjective Contraction pain worsened again Assessment & Plan (1) Insulin controlled gestational diabetes mellitus (GDM) during : (2) Chronic hypertension affecting : (3) Hypothyroid in , antepartum: Plan: 31 y/o at 38 4/7 wga presents for IOL for cHTN VSS Fetus cat 1 Labor - SVE seems like it has been unchanged now for over 6 hours now b/w my understanding and nursing exam prior - my exam a few hours ago I considered 6-7 compared to what nursing was seeing, again station progressed from my exam earlier in the night. Contractions have not been consistently adequate but no further progress has been made in terms of cervical changed. Pt is in significant pain again and does not desire to proceed further with induction as has required multiple attempts to get her comfortable. Pt desires CS, I think she is coming up on meeting criteria for arrest as well. Discussed indications, risks, benefits, alternatives with risks including infection, bleeding, injury to adjacent structures (bowel, bladder, ureters, blood vessels, nerves, baby), possible need for blood transfusion and/or life saving hysterectomy, VTE. Consent reviewed in detail w/ pt and signed after all questions answered to her satisfaction. cHTN on meds - PET labs normal today, continue labetalol daily. BPs elevated during severe pain, but mild range in b/w A2GDM - q1h - elevated recently but pt has been in a lot of pain during this time GBS neg epidural in place Admission and Anticipated Discharge Date Admission Date: March 05, 2022 Physical Exam Genitourinary: Manual OB Exam: + cervical dilation (6-7), + cervical effacement 70% and + station 0 OB Exam Monitor Tracing: + scalp electrode used, + intra-uterine pressure catheter used (q5, periods of adequacy but not consistent) and + category I Results & Data ([facility]) Vital Signs (Past 12 Hours) Vital Signs Temp Pulse Resp BP Pulse Ox 03/06/22 06:32 110 H 94 03/06/22 06:27 112 H 99 03/06/22 06:22 107 H 155/82 H 96 03/06/22 06:18 125 H 89 L 03/06/22 06:17 110 H 98 03/06/22 06:12 115 H 98 03/06/22 06:09 114 H 167/84 H 03/06/22 06:07 115 H 98 03/06/22 06:02 109 H 97 03/06/22 06:00 20 03/06/22 05:57 124 H 99 03/06/22 05:53 114 H 139/92 03/06/22 05:52 117 H 97 03/06/22 05:47 102 H 96 03/06/22 05:42 111 H 98 03/06/22 05:41 115 H 91 03/06/22 05:40 98.8 F 18 03/06/22 05:39 106 H 149/79 H 03/06/22 05:37 120 H 97 03/06/22 05:32 114 H 93 03/06/22 05:27 104 H 96 03/06/22 05:22 114 H 80 L 03/06/22 05:19 105 H 139/71 03/06/22 05:17 114 H 95 03/06/22 05:16 110 H 141/72 H 03/06/22 05:13 101 H 146/80 H 03/06/22 05:12 108 H 96 03/06/22 05:10 111 H 145/93 H 94 03/06/22 05:07 104 H 146/84 H 97 03/06/22 05:05 119 H 90 03/06/22 05:04 105 H 151/89 H 03/06/22 05:02 116 H 145/67 H 98 03/06/22 04:58 112 H 157/91 H 94 03/06/22 04:57 106 H 95 03/06/22 04:55 101 H 155/85 H 03/06/22 04:52 107 H 160/88 H 95 03/06/22 04:50 114 H 86 L 03/06/22 04:49 113 H 166/99 H 03/06/22 04:48 100 H 162/91 H 03/06/22 04:47 105 H 98 03/06/22 04:46 116 H 178/111 H 03/06/22 04:45 102 H 94 03/06/22 04:43 105 H 175/101 H 03/06/22 04:42 106 H 96 03/06/22 04:40 115 H 176/105 H 03/06/22 04:37 112 H 97 03/06/22 04:36 103 H 161/92 H 03/06/22 04:33 114 H 164/95 H 93 03/06/22 04:32 103 H 97 03/06/22 04:27 104 H 96 03/06/22 04:23 102 H 93 03/06/22 04:22 102 H 97 03/06/22 04:20 109 H 175/98 H 03/06/22 04:17 109 H 96 03/06/22 04:16 116 H 91 03/06/22 04:14 112 H 176/92 H 03/06/22 04:12 103 H 97 03/06/22 04:07 104 H 97 03/06/22 04:05 114 H 191/93 H 03/06/22 04:02 107 H 211/93 H 94 03/06/22 03:59 100 H 175/80 H 89 L 03/06/22 03:57 111 H 99 03/06/22 03:56 96 H 173/81 H 03/06/22 03:53 102 H 175/81 H 03/06/22 03:52 107 H 98 03/06/22 03:51 99 H 94 03/06/22 03:50 97 H 171/78 H 03/06/22 03:47 104 H 179/86 H 98 03/06/22 03:44 93 H 171/90 H 03/06/22 03:42 108 H 97 03/06/22 03:41 100 H 163/87 H 94 03/06/22 03:38 103 H 170/92 H 03/06/22 03:37 98 H 97 03/06/22 03:35 98.4 F 96 H 18 165/82 H 03/06/22 03:32 96 H 97 03/06/22 03:31 108 H 179/106 H 03/06/22 03:29 95 H 94 03/06/22 03:26 104 H 97 03/06/22 03:25 107 H 161/87 H 03/06/22 03:23 105 H 89 L 03/06/22 03:21 104 H 98 03/06/22 03:18 108 H 180/115 H 03/06/22 03:16 107 H 98 03/06/22 03:14 114 H 90 03/06/22 03:11 110 H 98 03/06/22 03:06 115 H 98 03/06/22 03:05 94 H 94 03/06/22 03:03 100 H 184/93 H 03/06/22 03:01 101 H 98 03/06/22 02:57 96 H 92 03/06/22 02:56 99 H 98 03/06/22 02:51 95 H 96 03/06/22 02:48 94 H 175/88 H 03/06/22 02:46 109 H 98 03/06/22 02:45 96 H 94 03/06/22 02:41 110 H 97 03/06/22 02:36 100 H 98 03/06/22 02:33 95 H 164/95 H 03/06/22 02:31 107 H 98 03/06/22 02:26 106 H 98 03/06/22 02:21 96 H 94 03/06/22 02:19 96 H 92 03/06/22 02:17 99 H 171/91 H 03/06/22 02:16 99 H 96 03/06/22 02:12 96 H 167/97 H 03/06/22 02:11 100 H 97 03/06/22 02:10 97 H 170/100 H 03/06/22 02:07 104 H 182/101 H 03/06/22 02:06 96 H 97 03/06/22 02:04 100 H 172/102 H 03/06/22 02:01 90 96 03/06/22 01:56 102 H 99 03/06/22 01:55 98.4 F 03/06/22 01:51 104 H 98 03/06/22 01:46 93 H 99 03/06/22 01:44 93 H 162/94 H 03/06/22 01:41 89 160/94 H 97 03/06/22 01:38 88 151/92 H 03/06/22 01:36 97 H 99 03/06/22 01:35 86 149/91 H 03/06/22 01:34 94 H 91 03/06/22 01:33 94 H 155/99 H 03/06/22 01:31 97 H 98 03/06/22 01:29 87 147/90 H 93 03/06/22 01:26 97 H 148/88 H 98 03/06/22 01:23 85 150/91 H 03/06/22 01:21 97 H 156/90 H 100 03/06/22 01:17 99 H 146/83 H 06/08/22 01:16 94 H 98 03/06/22 01:14 100 H 161/87 H 03/06/22 01:11 108 H 167/91 H 98 03/06/22 01:08 102 H 162/82 H 03/06/22 01:06 111 H 100 03/06/22 01:01 110 H 94 03/06/22 01:00 98 H 18 163/85 H 03/06/22 00:56 104 H 76 L 03/06/22 00:53 104 H 93 03/06/22 00:51 101 H 97 03/06/22 00:46 99 H 147/83 H 97 03/06/22 00:44 105 H 89 L 03/06/22 00:41 108 H 96 03/06/22 00:39 100 H 146/68 H 03/06/22 00:37 107 H 181/88 H 93 03/06/22 00:36 100 H 189/96 H 03/06/22 00:35 105 H 98 03/06/22 00:34 103 H 182/94 H 03/06/22 00:31 109 H 173/87 H 80 L 03/06/22 00:30 105 H 96 03/06/22 00:26 100 H 86 L 03/06/22 00:25 105 H 96 03/06/22 00:20 106 H 95 03/06/22 00:19 101 H 89 L 03/06/22 00:15 102 H 168/98 H 97 03/06/22 00:14 99 H 86 L 03/06/22 00:10 104 H 97 03/06/22 00:07 104 H 88 L 03/06/22 00:05 104 H 96 03/06/22 00:01 101 H 90 03/06/22 00:00 102 H 162/97 H 98 03/05/22 23:55 107 H 96 03/05/22 23:53 116 H 91 03/05/22 23:50 110 H 94 03/05/22 23:48 110 H 92 03/05/22 23:45 111 H 167/81 H 99 03/05/22 23:40 104 H 98 03/05/22 23:35 103 H 98 03/05/22 23:30 107 H 18 97 03/05/22 23:29 109 H 167/76 H 03/05/22 23:26 112 H 163/72 H 03/05/22 23:25 110 H 97 03/05/22 23:23 106 H 179/78 H 03/05/22 23:20 105 H 160/75 H 99 03/05/22 23:17 112 H 156/69 H 03/05/22 23:15 107 H 99 03/05/22 23:14 106 H 152/80 H 03/05/22 23:11 103 H 151/72 H 03/05/22 23:10 99.1 F 106 H 18 99 03/05/22 23:08 101 H 156/72 H 03/05/22 23:05 103 H 127/70 99 03/05/22 23:02 102 H 124/70 03/05/22 23:00 103 H 18 99 03/05/22 22:59 96 H 127/72 03/05/22 22:56 100 H 124/73 03/05/22 22:55 97 H 98 03/05/22 22:53 91 H 122/76 03/05/22 22:50 97 H 119/65 98 03/05/22 22:47 96 H 129/62 03/05/22 22:45 96 H 98 03/05/22 22:44 100 H 126/65 03/05/22 22:41 96 H 123/58 L 03/05/22 22:40 95 H 98 03/05/22 22:38 99 H 126/60 03/05/22 22:35 96 H 133/63 99 03/05/22 22:32 102 H 143/56 H 90 03/05/22 22:30 86 99 03/05/22 22:29 87 153/80 H 03/05/22 22:26 82 152/76 H 03/05/22 22:25 85 100 03/05/22 22:23 84 152/77 H 03/05/22 22:20 84 154/76 H 100 03/05/22 22:17 83 152/74 H 03/05/22 22:15 86 100 03/05/22 22:14 88 158/92 H 03/05/22 22:11 93 H 153/84 H 03/05/22 22:10 89 100 03/05/22 22:08 86 158/81 H 03/05/22 22:05 91 H 160/77 H 100 03/05/22 22:02 102 H 149/70 H 03/05/22 22:00 104 H 100 03/05/22 21:59 109 H 150/78 H 03/05/22 21:56 115 H 150/80 H 03/05/22 21:55 116 H 100 03/05/22 21:54 125 H 143/74 H 03/05/22 21:51 116 H 105/63 03/05/22 21:50 110 H 97 03/05/22 21:47 86 91 03/05/22 21:45 80 97 03/05/22 21:44 71 110/59 L 03/05/22 21:41 76 112/57 L 03/05/22 21:40 80 99 03/05/22 21:38 90 124/72 03/05/22 21:35 90 126/72 99 03/05/22 21:32 110 H 122/58 L 03/05/22 21:30 98 H 99 03/05/22 21:29 91 H 137/67 03/05/22 21:26 93 H 145/74 H 03/05/22 21:25 91 H 100 03/05/22 21:23 86 141/72 H 03/05/22 21:20 96 H 140/82 100 03/05/22 21:17 90 159/84 H 03/05/22 21:15 99 H 100 03/05/22 21:14 90 159/89 H 03/05/22 21:11 91 H 167/90 H 03/05/22 21:10 90 100 03/05/22 21:08 90 155/86 H 03/05/22 21:05 91 H 99 03/05/22 21:04 90 166/77 H 03/05/22 21:02 91 H 180/97 H 03/05/22 21:00 93 H 99 03/05/22 20:59 94 H 157/95 H 03/05/22 20:55 96 H 150/90 H 99 03/05/22 20:50 94 H 96 03/05/22 20:45 86 99 03/05/22 20:40 85 98 03/05/22 20:35 93 H 99 03/05/22 20:34 87 150/85 H 03/05/22 20:30 87 99 03/05/22 20:25 85 98 03/05/22 20:20 86 97 03/05/22 20:15 90 99 03/05/22 20:10 87 99 03/05/22 20:05 95 H 143/75 H 99 03/05/22 20:00 88 100 03/05/22 19:55 85 98 03/05/22 19:50 83 98 03/05/22 19:45 81 98 03/05/22 19:40 81 98 03/05/22 19:35 89 131/63 100 03/05/22 19:30 91 H 100 03/05/22 19:25 94 H 100 03/05/22 19:20 98.8 F 87 18 100 03/05/22 19:15 84 100 03/05/22 19:10 88 100 03/05/22 19:06 105 H 109/78 03/05/22 19:05 88 100 03/05/22 19:01 20 03/05/22 19:00 92 H 100 03/05/22 18:59 93 H 119/64 03/05/22 18:55 90 99 03/05/22 18:53 84 109/56 L 03/05/22 18:50 110 H 97 03/05/22 18:49 76 91 03/05/22 18:45 90 98 03/05/22 18:40 88 99 Coding Level of Care Code None Diagnoses Insulin controlled gestational diabetes mellitus (GDM) during O24.414 Chronic hypertension affecting O10.919 Hypothyroid in , antepartum O99.280; E03.9
[2022-03-06] MEDS ORDERED: AZITHROMYCIN 500 MG in DEXTROSE 5% 250 ML IV ONE (06:45)
[2022-03-06] MEDS ORDERED: LACTATED RINGER'S 1,000 ML IV SCH (06:45)
--- NOTE | 2022-03-06 06:48 | Communication Note ---
Date of Service: March 06, 2022 At approx 0530, was called for c/o pain VSS. 2% lidocaine 5cc + 5cc given with some relief.
[2022-03-06] MEDS ORDERED: SUCCINYLCHOLINE CHLORIDE 20 MG/ML 10 ML VIAL IV ONE (06:58)
[2022-03-06] MEDS ORDERED: PROPOFOL IV EMULSION 10 MG/ML 20 ML VIAL IV ONE (06:58)
[2022-03-06] MEDS ORDERED: MoRPHine SULFATE PF 1 MG/ML 10 ML AMP/VIAL ONE (07:11)
[2022-03-06] MEDS ORDERED: ONDANSETRON INJ 2 MG/ML 2 ML VIAL ONE (07:28)
[2022-03-06] MEDS ORDERED: METOCLOPRAMIDE HCL INJ 5 MG/ML 2 ML VIAL ONE (07:28)
[2022-03-06] MEDS ORDERED: SENNA 8.6 MG TAB PO PRN (08:02)
[2022-03-06] MEDS ORDERED: HYDROCORTISONE ACETATE 25 MG SUPP PR PRN (08:02)
[2022-03-06] MEDS ORDERED: DIPHTHERIA/TETANUS/PERTUSSIS 0.5 ML SYR/VIAL IM ONE (08:02)
[2022-03-06] MEDS ORDERED: ONDANSETRON INJ 2 MG/ML 2 ML VIAL IV PRN ×2 (08:02→08:34)
[2022-03-06] MEDS ORDERED: diphenhydrAMINE 50 MG/ML VIAL IV PRN ×2 (08:02→08:34)
[2022-03-06] MEDS ORDERED: MEPERIDINE HCL 50 MG/ML CARP IV PRN (08:02)
[2022-03-06] MEDS ORDERED: PROMETHAZINE HCL 25 MG in SODIUM CHLORIDE 0.9% 50 ML IV PRN (08:02)
[2022-03-06] MEDS ORDERED: diphenhydrAMINE Capsule 25 MG CAP PO PRN (08:02)
[2022-03-06] MEDS ORDERED: MAGNESIUM HYDROXIDE SUSP 30 ML UDC PO PRN (08:02)
[2022-03-06] MEDS ORDERED: BENZOCAINE 20% AER SPR 82.5 GM CAN EXT PRN (08:02)
[2022-03-06] MEDS ORDERED: NEOSTIGMINE METHYLSULFATE 1 MG/ML 10ML VIAL ONE (08:13)
[2022-03-06] MEDS ORDERED: GLYCOPYRROLATE 0.2 MG/ML VIAL ONE (08:13)
[2022-03-06] MEDS ORDERED: NALOXONE HCL 1 MG in SODIUM CHLORIDE 0.9% 1000ML 1,000 ML IV PRN (08:34)
[2022-03-06] MEDS ORDERED: NALOXONE HCL 0.4 MG/1 ML VIAL/CARP IV PRN (08:34)
[2022-03-06] MEDS ORDERED: PROMETHAZINE HCL 12.5 MG in SODIUM CHLORIDE 0.9% 50 ML IV PRN (08:34)
[2022-03-06] MEDS ORDERED: NALOXONE HCL 0.08 MG in SYRINGE 1.8 ML IV PRN (08:34)
[2022-03-06] MEDS ORDERED: MoRPHine SULFATE 2 MG/ML CARP IV PRN (08:34)
[2022-03-06] MEDS ORDERED: LACTATED RINGER'S 500 ML IV PRN (08:34)
[2022-03-06] MEDS ORDERED: ePHEDrine sulfate 50 MG/ML AMP IV PRN (08:34)
[2022-03-06] MEDS ORDERED: NALBUPHINE HCL INJ 10 MG/ML AMP IV PRN (08:34)
[2022-03-06] MEDS ORDERED: MoRPHine SULFATE PF 1 MG/ML 10 ML AMP/VIAL EPI ONE (08:34)
[2022-03-06] MEDS ORDERED: KETOROLAC 30 MG/ML VIAL IV PRN (08:34)
[2022-03-06] MEDS ORDERED: ESMOLOL HCL INJ 10 MG/ML 10ML VIAL IV ONE (08:37)
[2022-03-06] MEDS ORDERED: NO NARCOTICS OR SEDATIVES SCH (08:45)
[2022-03-06] MEDS ORDERED: DC INTRASPINAL MORPHINE SCH (08:45)
[2022-03-06] MEDS ORDERED: SODIUM CHLORIDE 0.9% 1000ML 1,000 ML IV SCH (08:45)
--- NOTE | 2022-03-06 08:45 | Operative Report ---
[facility] Post Operative Report Pre & Post Diagnosis Operation Date: 03/06/22 06:40 Pre-Op Diagnosis: Single Intrauterine at 39 Weeks;Arrest Of Dilation;Chronic Hypertension;A2 GDM; Hypothyroid, Meconium Post-Op Diagnosis: Same;Delivery of a live male child at 0739 I identified the patient and participated in the time-out.: Yes Procedure Operation Date: 03/06/22 06:40 Actual Procedures p Primary Low Transverse Section in - Idania Medina MD Surgeon Idania Medina MD Wicker Worker MD Katja; MD Nathaly Estimated Blood Loss 700 Findings Consistent with Post-Op Diagnosis Normal appearing uterus, bilateral fallopian tubes, and ovaries. Viable male with APGARs of 5, 7, 9. Fluids 1L fluid, UOP 50 cc clear Specimens placenta, cord blood, cord gases Drains Padilla draining concentrated clear urine Anesthesia Type General Complications none Disposition Accompanied Patient To Recovery: Yes Disposition: L&D Indications 31 y/o at 38 5/7 wga began induction of labor 1 day ago for chronic hypertension on medications. was also complicated by insulin dependent gestational diabetes. Induction was begun with padilla bulb the evening prior and fell out prior to arrival to L&D. Pitocin was started on admission and she received an epidural for pain control. She underwent SROM and subsequent AROM of forebag. She did become painful and so received a re-dose of epidural however this markedly decreased blood pressure and so pitocin was discontinued to allow for recovery. Pitocin was restarted but epidural had to be replaced and again decel and discontinuation was noted. At this point she was noted to be 6cm. Pitocin was restarted and up to 6, however continued to have significant pain following the re-dose wearing off. Over the next 6 hours cervix remained unchanged. Given significant pain and failure to progress, pt opted for delivery Description of Procedure The patient was taken to the operating room after consents were ensured. The patient was properly identified. The patient was placed in a dorsal supine position with left lateral tilt, then prepped and draped in normal sterile fashion. Surgical time out was performed. Antibiotics were given for pr ophylaxis. General anesthesia was obtained without difficulty. Pfannenstiel skin incision was performed and carried down to the underlying fascia with a knife. The fascia was then nicked in the midline and extended laterally with pickups and Handley scissors. Superior portion of the fascia was grasped with Kochers x2 and elevated off the underlying rectus muscles using blunt dissection. Inferior portion of the fascia was then grasped with Prasad clamps x2 and also elevated off the underlying muscles with blunt dissection. Midline was identified. The peritoneum was then entered and extended to provide adequate room for delivery of baby. The hand was inserted into the abdomen, uterus was noted to be clear of adhesions. Bladder blade was inserted. A low transverse uterine incision was made in the uterus and extended bluntly in a superior to inferior fashion. Large amount of meconium fluid was noted at this time. head was grasped and elevated through the hysterotomy in an atraumatic fashion. The baby delivered in CORNELIO position, loose nuchal cord noted and reduced. Remainder of the body delivered without incident. Nose and mouth were bulb suctioned on the surgical field. The cord was double clamped and cut, baby was handed off to awaiting pediatrics staff. Cord segment and blood were obtained. Placenta was then expressed from the uterus. The uterus was exteriorized. Several passes were made inside the uterus to remove the remaining membranes. Attention was then turned to the hysterotomy, which was then closed with a running locked suture of 0 Vicryl on a CTX needle. An imbricating layer was then performed using 0-Monocryl. There was noted to be good hemostasis. The posterior cul-de-sac was then inspected and cleaned of clot and debris. The hysterotomy was again inspected and noted to be hemostatic. The uterus was returned to the abdomen. The right and left pericolic gutters were cleaned of all clot and debris. The hysterotomy was again noted to be hemostatic. Space of Retzius was noted to be hemostatic. The fascia was then closed with a running suture of 0 Vicryl on a CT1 needle. Subcutaneous tissue was copiously irrigated and noted to be hemostatic. Subcutaneous tissue was re-approximated using 2-0 plain gut in two layers. The skin was then closed with a running suture of 3-0 Monocryl in a subcuticular fashion. At termination of the procedure, the fundal pressure was applied and a moderate amount of lochia was expressed. Pressure dressing was applied to the patient. She tolerated the procedure well. All sponge, needle, instrument counts were correct x 2. I attest to the content of the Intraoperative Record and any orders documented therein. Any exceptions are noted below. OB Procedure Charges 84649
[2022-03-06 09:14] LABS: Base Excess Cord Venous Blood -3.6 mEq/L (-7.7-1.9); Cord Venous Blood HCO3 24 mmol/L (18.4-26.8); Cord Venous Blood PCO2 50 mmHg (30.4-57.2); Cord Venous Blood PO2 27 mmHg (14.1-43.3); Cord Venous Blood pH 7.29 (7.20-7.44); O2 Saturation Cord Venous Bld 61.3 % (<68)
[2022-03-06] MEDS: ESCITALOPRAM OXALATE 20 MG TAB PO SCH (10:32)
[2022-03-06] MEDS: LEVOTHYROXINE SODIUM 75 MCG TABLET PO SCH (10:32)
[2022-03-06] MEDS: LABETALOL HCL 100 MG TAB PO SCH (10:35)
[2022-03-06] MEDS: OXYTOCIN 20 UNITS in LACTATED RINGER'S 1,000 ML IV SCH ×2 (10:38→19:33)
--- NOTE | 2022-03-06 12:09 | Anesthesiology Progress Note ---
Date of Service March 06, 2022 Anesthesia Post Procedure Vital Signs Vital Signs: Temp Pulse Resp BP Pulse Ox 03/06/22 10:40 103 H 153/91 H 03/06/22 10:39 110 H 140/72 03/06/22 10:35 107 H 99 03/06/22 10:30 92 H 96 03/06/22 10:29 94 H 137/72 03/06/22 10:25 94 H 96 03/06/22 10:20 91 H 97 03/06/22 10:19 104 H 138/78 03/06/22 10:15 96 H 96 03/06/22 10:10 106 H 96 03/06/22 10:09 100 H 130/70 03/06/22 10:05 109 H 96 03/06/22 10:00 111 H 20 95 03/06/22 09:59 108 H 140/75 03/06/22 09:55 114 H 96 03/06/22 09:50 110 H 95 03/06/22 09:49 108 H 117/62 03/06/22 09:45 112 H 94 03/06/22 09:40 110 H 94 03/06/22 09:39 105 H 137/77 03/06/22 09:35 110 H 93 03/06/22 09:30 107 H 20 94 03/06/22 09:29 109 H 128/83 03/06/22 09:25 108 H 94 03/06/22 09:20 106 H 20 95 03/06/22 09:19 111 H 149/75 H 03/06/22 09:15 111 H 95 03/06/22 09:10 99 H 20 97 03/06/22 09:09 101 H 146/80 H 03/06/22 09:05 103 H 95 03/06/22 09:00 99 H 22 96 03/06/22 08:59 100 H 143/74 H 03/06/22 08:55 98 H 96 03/06/22 08:52 102 H 94 03/06/22 08:50 106 H 22 94 03/06/22 08:49 104 H 150/78 H 03/06/22 08:47 108 H 94 03/06/22 08:45 102 H 99 03/06/22 08:40 99 H 20 97 03/06/22 08:39 97 H 165/88 H 03/06/22 08:35 98 H 98 03/06/22 08:30 36.9 C 97 H 22 98 03/06/22 08:29 100 H 161/91 H 03/06/22 07:14 118 H 20 94 03/06/22 07:12 105 H 100 03/06/22 07:09 108 H 84 L 03/06/22 07:07 105 H 138/82 98 03/06/22 07:02 100 H 97 03/06/22 06:59 102 H 93 03/06/22 06:57 98 H 95 03/06/22 06:53 116 H 90 03/06/22 06:52 113 H 96 03/06/22 06:47 110 H 96 03/06/22 06:42 112 H 96 03/06/22 06:38 117 H 190/102 H 86 L 03/06/22 06:37 112 H 98 03/06/22 06:32 110 H 94 03/06/22 06:27 112 H 99 03/06/22 06:22 107 H 155/82 H 96 03/06/22 06:18 125 H 89 L 03/06/22 06:17 110 H 98 03/06/22 06:12 115 H 98 03/06/22 06:09 114 H 167/84 H 03/06/22 06:07 115 H 98 03/06/22 06:02 109 H 97 03/06/22 06:00 20 03/06/22 05:57 124 H 99 03/06/22 05:53 114 H 139/92 03/06/22 05:52 117 H 97 03/06/22 05:47 102 H 96 03/06/22 05:42 111 H 98 03/06/22 05:41 115 H 91 03/06/22 05:40 37.1 C 18 03/06/22 05:39 106 H 149/79 H 03/06/22 05:37 120 H 97 03/06/22 05:32 114 H 93 03/06/22 05:27 104 H 96 03/06/22 05:22 114 H 80 L 03/06/22 05:19 105 H 139/71 03/06/22 05:17 114 H 95 03/06/22 05:16 110 H 141/72 H 03/06/22 05:13 101 H 146/80 H 03/06/22 05:12 108 H 96 03/06/22 05:10 111 H 145/93 H 94 03/06/22 05:07 104 H 146/84 H 97 03/06/22 05:05 119 H 90 03/06/22 05:04 105 H 151/89 H 03/06/22 05:02 116 H 145/67 H 98 03/06/22 04:58 112 H 157/91 H 94 03/06/22 04:57 106 H 95 03/06/22 04:55 101 H 155/85 H 03/06/22 04:52 107 H 160/88 H 95 03/06/22 04:50 114 H 86 L 03/06/22 04:49 113 H 166/99 H 03/06/22 04:48 100 H 162/91 H 03/06/22 04:47 105 H 98 03/06/22 04:46 116 H 178/111 H 03/06/22 04:45 102 H 94 03/06/22 04:43 105 H 175/101 H 03/06/22 04:42 106 H 96 03/06/22 04:40 115 H 176/105 H 03/06/22 04:37 112 H 97 03/06/22 04:36 103 H 161/92 H 03/06/22 04:33 114 H 164/95 H 93 03/06/22 04:32 103 H 97 03/06/22 04:27 104 H 96 03/06/22 04:23 102 H 93 03/06/22 04:22 102 H 97 03/06/22 04:20 109 H 175/98 H 03/06/22 04:17 109 H 96 03/06/22 04:16 116 H 91 03/06/22 04:14 112 H 176/92 H 03/06/22 04:12 103 H 97 03/06/22 04:07 104 H 97 03/06/22 04:05 114 H 191/93 H 03/06/22 04:02 107 H 211/93 H 94 03/06/22 03:59 100 H 175/80 H 89 L 03/06/22 03:57 111 H 99 03/06/22 03:56 96 H 173/81 H 03/06/22 03:53 102 H 175/81 H 03/06/22 03:52 107 H 98 06/08/22 03:51 99 H 94 03/06/22 03:50 97 H 171/78 H 03/06/22 03:47 104 H 179/86 H 98 03/06/22 03:44 93 H 171/90 H 03/06/22 03:42 108 H 97 03/06/22 03:41 100 H 163/87 H 94 03/06/22 03:38 103 H 170/92 H 03/06/22 03:37 98 H 97 03/06/22 03:35 36.9 C 96 H 18 165/82 H 03/06/22 03:32 96 H 97 03/06/22 03:31 108 H 179/106 H 03/06/22 03:29 95 H 94 03/06/22 03:26 104 H 97 03/06/22 03:25 107 H 161/87 H 03/06/22 03:23 105 H 89 L 03/06/22 03:21 104 H 98 03/06/22 03:18 108 H 180/115 H 03/06/22 03:16 107 H 98 03/06/22 03:14 114 H 90 03/06/22 03:11 110 H 98 03/06/22 03:06 115 H 98 03/06/22 03:05 94 H 94 03/06/22 03:03 100 H 184/93 H 03/06/22 03:01 101 H 98 03/06/22 02:57 96 H 92 03/06/22 02:56 99 H 98 03/06/22 02:51 95 H 96 03/06/22 02:48 94 H 175/88 H 03/06/22 02:46 109 H 98 03/06/22 02:45 96 H 94 03/06/22 02:41 110 H 97 03/06/22 02:36 100 H 98 03/06/22 02:33 95 H 164/95 H 03/06/22 02:31 107 H 98 03/06/22 02:26 106 H 98 03/06/22 02:21 96 H 94 03/06/22 02:19 96 H 92 03/06/22 02:17 99 H 171/91 H 03/06/22 02:16 99 H 96 03/06/22 02:12 96 H 167/97 H 03/06/22 02:11 100 H 97 06/08/22 02:10 97 H 170/100 H 03/06/22 02:07 104 H 182/101 H 03/06/22 02:06 96 H 97 03/06/22 02:04 100 H 172/102 H 03/06/22 02:01 90 96 03/06/22 01:56 102 H 99 03/06/22 01:55 36.9 C 03/06/22 01:51 104 H 98 03/06/22 01:46 93 H 99 03/06/22 01:44 93 H 162/94 H 03/06/22 01:41 89 160/94 H 97 03/06/22 01:38 88 151/92 H 03/06/22 01:36 97 H 99 03/06/22 01:35 86 149/91 H 03/06/22 01:34 94 H 91 03/06/22 01:33 94 H 155/99 H 03/06/22 01:31 97 H 98 03/06/22 01:29 87 147/90 H 93 03/06/22 01:26 97 H 148/88 H 98 03/06/22 01:23 85 150/91 H 03/06/22 01:21 97 H 156/90 H 100 03/06/22 01:17 99 H 146/83 H 03/06/22 01:16 94 H 98 03/06/22 01:14 100 H 161/87 H 03/06/22 01:11 108 H 167/91 H 98 03/06/22 01:08 102 H 162/82 H 03/06/22 01:06 111 H 100 03/06/22 01:01 110 H 94 03/06/22 01:00 98 H 18 163/85 H 03/06/22 00:56 104 H 76 L 03/06/22 00:53 104 H 93 03/06/22 00:51 101 H 97 03/06/22 00:46 99 H 147/83 H 97 03/06/22 00:44 105 H 89 L 03/06/22 00:41 108 H 96 03/06/22 00:39 100 H 146/68 H 03/06/22 00:37 107 H 181/88 H 93 03/06/22 00:36 100 H 189/96 H 03/06/22 00:35 105 H 98 03/06/22 00:34 103 H 182/94 H 03/06/22 00:31 109 H 173/87 H 80 L 03/06/22 00:30 105 H 96 03/06/22 00:26 100 H 86 L 03/06/22 00:25 105 H 96 03/06/22 00:20 106 H 95 03/06/22 00:19 101 H 89 L 03/06/22 00:15 102 H 168/98 H 97 03/06/22 00:14 99 H 86 L 03/06/22 00:10 104 H 97 03/06/22 00:07 104 H 88 L 03/06/22 00:05 104 H 96 03/06/22 00:01 101 H 90 03/06/22 00:00 102 H 162/97 H 98 03/05/22 23:55 107 H 96 03/05/22 23:53 116 H 91 03/05/22 23:50 110 H 94 03/05/22 23:48 110 H 92 03/05/22 23:45 111 H 167/81 H 99 03/05/22 23:40 104 H 98 03/05/22 23:35 103 H 98 03/05/22 23:30 107 H 18 97 03/05/22 23:29 109 H 167/76 H 03/05/22 23:26 112 H 163/72 H 03/05/22 23:25 110 H 97 03/05/22 23:23 106 H 179/78 H 03/05/22 23:20 105 H 160/75 H 99 03/05/22 23:17 112 H 156/69 H 03/05/22 23:15 107 H 99 03/05/22 23:14 106 H 152/80 H 03/05/22 23:11 103 H 151/72 H 03/05/22 23:10 37.3 C 106 H 18 99 03/05/22 23:08 101 H 156/72 H 03/05/22 23:05 103 H 127/70 99 03/05/22 23:02 102 H 124/70 03/05/22 23:00 103 H 18 99 03/05/22 22:59 96 H 127/72 03/05/22 22:56 100 H 124/73 03/05/22 22:55 97 H 98 03/05/22 22:53 91 H 122/76 03/05/22 22:50 97 H 119/65 98 03/05/22 22:47 96 H 129/62 03/05/22 22:45 96 H 98 03/05/22 22:44 100 H 126/65 03/05/22 22:41 96 H 123/58 L 03/05/22 22:40 95 H 98 03/05/22 22:38 99 H 126/60 03/05/22 22:35 96 H 133/63 99 03/05/22 22:32 102 H 143/56 H 90 03/05/22 22:30 86 99 03/05/22 22:29 87 153/80 H 03/05/22 22:26 82 152/76 H 03/05/22 22:25 85 100 03/05/22 22:23 84 152/77 H 03/05/22 22:20 84 154/76 H 100 03/05/22 22:17 83 152/74 H 03/05/22 22:15 86 100 03/05/22 22:14 88 158/92 H 03/05/22 22:11 93 H 153/84 H 03/05/22 22:10 89 100 03/05/22 22:08 86 158/81 H 03/05/22 22:05 91 H 160/77 H 100 03/05/22 22:02 102 H 149/70 H 03/05/22 22:00 104 H 100 03/05/22 21:59 109 H 150/78 H 03/05/22 21:56 115 H 150/80 H 03/05/22 21:55 116 H 100 03/05/22 21:54 125 H 143/74 H 03/05/22 21:51 116 H 105/63 03/05/22 21:50 110 H 97 03/05/22 21:47 86 91 03/05/22 21:45 80 97 03/05/22 21:44 71 110/59 L 03/05/22 21:41 76 112/57 L 03/05/22 21:40 80 99 03/05/22 21:38 90 124/72 03/05/22 21:35 90 126/72 99 03/05/22 21:32 110 H 122/58 L 03/05/22 21:30 98 H 99 03/05/22 21:29 91 H 137/67 03/05/22 21:26 93 H 145/74 H 03/05/22 21:25 91 H 100 03/05/22 21:23 86 141/72 H 03/05/22 21:20 96 H 140/82 100 03/05/22 21:17 90 159/84 H 03/05/22 21:15 99 H 100 03/05/22 21:14 90 159/89 H 03/05/22 21:11 91 H 167/90 H 03/05/22 21:10 90 100 03/05/22 21:08 90 155/86 H 03/05/22 21:05 91 H 99 03/05/22 21:04 90 166/77 H 03/05/22 21:02 91 H 180/97 H 03/05/22 21:00 93 H 99 03/05/22 20:59 94 H 157/95 H 03/05/22 20:55 96 H 150/90 H 99 03/05/22 20:50 94 H 96 03/05/22 20:45 86 99 03/05/22 20:40 85 98 03/05/22 20:35 93 H 99 03/05/22 20:34 87 150/85 H 03/05/22 20:30 87 99 03/05/22 20:25 85 98 03/05/22 20:20 86 97 03/05/22 20:15 90 99 03/05/22 20:10 87 99 03/05/22 20:05 95 H 143/75 H 99 03/05/22 20:00 88 100 03/05/22 19:55 85 98 03/05/22 19:50 83 98 03/05/22 19:45 81 98 03/05/22 19:40 81 98 03/05/22 19:35 89 131/63 100 03/05/22 19:30 91 H 100 03/05/22 19:25 94 H 100 03/05/22 19:20 37.1 C 87 18 100 03/05/22 19:15 84 100 03/05/22 19:10 88 100 03/05/22 19:06 105 H 109/78 03/05/22 19:05 88 100 03/05/22 19:01 20 03/05/22 19:00 92 H 100 03/05/22 18:59 93 H 119/64 03/05/22 18:55 90 99 03/05/22 18:53 84 109/56 L 03/05/22 18:50 110 H 97 03/05/22 18:49 76 91 03/05/22 18:45 90 98 03/05/22 18:40 88 99 03/05/22 18:35 86 136/79 98 03/05/22 18:30 91 H 16 97 03/05/22 18:27 90 176/82 H 03/05/22 18:26 93 H 94 03/05/22 18:25 89 99 03/05/22 18:24 91 H 202/103 H 03/05/22 18:20 88 100 03/05/22 18:15 84 98 03/05/22 18:10 86 98 03/05/22 18:05 99 H 98 03/05/22 18:04 96 H 175/110 H 03/05/22 18:01 18 03/05/22 18:00 90 98 03/05/22 17:55 87 98 03/05/22 17:50 91 H 98 03/05/22 17:45 79 98 03/05/22 17:40 88 97 03/05/22 17:35 82 139/85 97 03/05/22 17:30 87 16 97 03/05/22 17:25 90 97 03/05/22 17:20 88 98 03/05/22 17:19 90 94 03/05/22 17:15 90 97 03/05/22 17:13 94 H 94 03/05/22 17:10 85 97 03/05/22 17:05 87 146/85 H 97 03/05/22 17:00 92 H 18 98 03/05/22 16:56 92 H 84 L 03/05/22 16:55 90 98 03/05/22 16:50 99 H 98 03/05/22 16:45 89 99 03/05/22 16:40 91 H 98 03/05/22 16:35 89 173/95 H 99 03/05/22 16:30 85 20 99 03/05/22 16:25 84 98 03/05/22 16:20 84 99 03/05/22 16:15 83 98 03/05/22 16:10 99 H 97 03/05/22 16:05 85 141/86 H 99 03/05/22 16:00 90 18 98 03/05/22 15:55 79 99 03/05/22 15:50 78 97 03/05/22 15:45 76 98 03/05/22 15:40 86 98 03/05/22 15:35 87 143/71 H 98 03/05/22 15:30 84 16 98 03/05/22 15:25 84 100 03/05/22 15:20 85 99 03/05/22 15:15 85 99 03/05/22 15:10 79 100 03/05/22 15:05 79 99 03/05/22 15:00 36.9 C 85 18 99 03/05/22 14:55 100 H 98 03/05/22 14:52 82 143/76 H 03/05/22 14:50 84 98 03/05/22 14:45 73 97 03/05/22 14:40 75 96 03/05/22 14:37 70 136/74 03/05/22 14:35 70 97 03/05/22 14:30 73 18 97 03/05/22 14:25 73 96 03/05/22 14:22 74 136/74 03/05/22 14:20 73 97 03/05/22 14:15 76 97 03/05/22 14:10 72 97 03/05/22 14:08 71 137/78 03/05/22 14:05 73 98 03/05/22 14:00 72 16 98 03/05/22 13:55 71 97 03/05/22 13:52 71 134/80 03/05/22 13:50 72 97 03/05/22 13:45 75 97 03/05/22 13:40 73 99 03/05/22 13:35 80 147/69 H 99 03/05/22 13:34 75 171/79 H 03/05/22 13:30 83 16 99 03/05/22 13:28 75 139/84 03/05/22 13:25 74 98 03/05/22 13:23 76 144/78 H 03/05/22 13:20 74 98 03/05/22 13:18 20 03/05/22 13:17 77 145/75 H 03/05/22 13:15 74 99 03/05/22 13:13 80 141/76 H 03/05/22 13:10 102 H 98 03/05/22 13:07 80 144/79 H 03/05/22 13:05 81 16 99 03/05/22 13:02 75 151/79 H 03/05/22 13:00 77 98 03/05/22 12:58 79 143/81 H 03/05/22 12:55 83 18 99 03/05/22 12:50 86 100 03/05/22 12:48 85 147/81 H 03/05/22 12:45 90 99 03/05/22 12:40 86 18 145/82 H 99 03/05/22 12:38 85 140/79 03/05/22 12:36 82 135/78 03/05/22 12:35 86 18 99 03/05/22 12:34 84 136/78 03/05/22 12:32 85 125/80 03/05/22 12:31 85 144/82 H 03/05/22 12:30 86 16 99 03/05/22 12:29 86 140/87 03/05/22 12:26 86 144/82 H 03/05/22 12:25 85 143/85 H 99 03/05/22 12:22 89 157/89 H 03/05/22 12:21 18 03/05/22 12:20 88 149/80 H 98 03/05/22 12:19 90 153/80 H 03/05/22 12:18 18 03/05/22 12:16 86 131/81 03/05/22 12:15 89 99 03/05/22 12:14 90 131/80 03/05/22 12:10 89 99 Pain Intensity Abdomen: Pain Intensity: 5 Transfer of Care Handoff Completed per policy Notes Mental Status: alert / awake / arousable Patient Amnestic to Procedure: Yes Nausea / Vomiting: adequately controlled Pain: adequately controlled Airway Patency, RR, SpO2: stable & adequate BP & HR: stable & adequate Hydration State: stable & adequate Anesthetic Complications: no major complications apparent
[2022-03-06] MEDS: SIMETHICONE 80 MG CHEW PO SCH ×3 (16:28→21:08)
[2022-03-06] MEDS: LACTATED RINGER'S 1,000 ML IV SCH ×2 (18:02→18:03)
[2022-03-06] MEDS: DOCUSATE SODIUM 100 MG CAP PO SCH (21:08)
[2022-03-07] MEDS: KETOROLAC 30 MG/ML VIAL IV PRN ×2 (02:29→08:15)
[2022-03-07] MEDS ORDERED: diphenhydrAMINE Capsule 25 MG CAP PO PRN (02:35)
[2022-03-07] MEDS ORDERED: diphenhydrAMINE 50 MG/ML VIAL IV PRN (02:35)
[2022-03-07] MEDS: LEVOTHYROXINE SODIUM 75 MCG TABLET PO SCH (06:20)
[2022-03-07 06:32] LABS: Hematocrit (blood only) 26.1 % (37-47); Hemoglobin 8.5 g/dL (12.0-16.0); Mean Corpuscular Hemoglobin 28.9 pg (25-34); Mean Corpuscular Hgb Conc 32.6 g/dL (32-36); Mean Corpuscular Volume 88.8 fL (80-100); Mean Platelet Volume 9.1 fL (7.4-10.4); Platelet Count 251 K/uL (130-400); RDW Coefficient of Variation 14.9 % (11.5-14.5); RDW Standard Deviation 48.5 fL (36.4-46.3); Red Blood Count 2.94 M/uL (4.2-5.4); White Blood Count 14.52 K/uL (4.8-10.8)
[2022-03-07 08:01] LABS: Basophils # (auto) 0.01 K/uL (0-0.2); Basophils % (auto) 0.1 %; Eosinophils # (auto) 0.05 K/uL (0-0.5); Eosinophils % (auto) 0.3 %; Immature Granulocytes # (auto) 0.07 K/uL (0.00-0.02); Immature Granulocytes % (auto) 0.5 %; Lymphocytes % (auto) 15.2 %; Monocytes # (auto) 0.98 K/uL (0.11-0.59); Monocytes % (auto) 6.7 %; Neutrophils # (auto) 11.21 K/uL (1.4-6.5); Neutrophils % (auto) 77.2 %
--- NOTE | 2022-03-07 08:06 | Obstetrical Progress Note ---
Date of Service March 07, 2022 Assessment & Plan (1) Delivery by section: Plan: 31yo POD 1 s/p LTCS at 38 weeks. LTCS 2/2 arrest of labor. complicated by chronic HTN, GDMA2. -Continue routine care -Vitals reviewed- HDS, afebrile -GBS neg -Encourage ambulation, advance diet -Pain control with ibuprofen, acetaminophen, oxy PRN -Encourage -Hgb 8.5, cont. to monitor -transition to oral meds -abdominal binder ordered per patient request -f/u in 6 weeks with OB after discharge (2) Unfavorable cervix in term : (3) Insulin controlled gestational diabetes mellitus (GDM) during : Admission and Anticipated Discharge Date Admission Date: March 05, 2022 Supervising Physician Co-Signing Physician Notes Resident Physician Supervision Note: I interviewed and examined the patient. Discussed with Dr. Andersen and agree with findings and plan as documented in the note. Any exceptions or clarifications are listed here: Doing well ppd 1. hgb is 8.5. Feeling overall well. routine care. 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 Denies dyspnea, cough. Denies chest pain. Denies dysuria. Mild headache yesterday now resolved Denies back pain. Physical Exam Physical Exam: General: Alert, oriented, no acute distress Cardiac: Regular rate and rhythm, normal S1, S2. No murmurs appreciated. Respiratory: Clear to auscultation b/l with good air flow entry, symmetric chest rise and fall. No wheezes or crackles. No increased work of breathing or accessory muscle use Abdomen: Soft, mildly tender, nondistended. Fundus firm and palpable at 1 cm below umbilicus. Bandages removed today, surgical incision clean, dry and intact without erythema, warmth or drainage. Bowel sounds appreciated. No guarding or rebound. Skin: No rashes or lesions Extremities: Warm, dry, well-perfused with capillary refill <2s b/l. No lower extremity edema, erythema or swelling. Negative Gray's sign b/l. Results & Data ([facility]) Vital Signs (Past 12 Hours) Vital Signs Temp Pulse Resp BP Pulse Ox 03/07/22 02:40 37.4 C 97 H 18 133/84 95 03/07/22 02:11 18 98 03/07/22 01:13 14 98 03/07/22 00:19 16 97 03/06/22 23:55 37.6 C H 96 H 18 131/81 96 03/06/22 23:04 20 97 03/06/22 22:00 16 98 03/06/22 21:18 18 97 03/06/22 20:15 37.5 C 96 H 18 129/76 96 Resident Activity Tracking Resident Involvement: Resident Care Provided Care Provided: OB Delivery
[2022-03-07] MEDS: ESCITALOPRAM OXALATE 20 MG TAB PO SCH (08:14)
[2022-03-07] MEDS: FERROUS SULFATE 325 MG TAB PO SCH (08:14)
[2022-03-07] MEDS: SIMETHICONE 80 MG CHEW PO SCH ×4 (08:14→20:10)
[2022-03-07] MEDS: DOCUSATE SODIUM 100 MG CAP PO SCH ×2 (08:14→20:10)
[2022-03-07] MEDS: PRENATAL VITAMIN 1 TAB PO SCH (08:14)
[2022-03-07] MEDS: LABETALOL HCL 100 MG TAB PO SCH (08:15)
[2022-03-07] MEDS: oxyCODONE/ACETAMINOPHEN 5mg/325mg TAB PO PRN ×3 (08:16→17:54)
[2022-03-07] MEDS: IBUPROFEN 600 MG TAB PO PRN ×2 (13:44→20:10)
[2022-03-07] MEDS ORDERED: bisacodyL 5 MG TABEC PO SCH (20:00)
[2022-03-08] MEDS: IBUPROFEN 600 MG TAB PO PRN ×4 (04:45→18:08)
[2022-03-08] MEDS: LEVOTHYROXINE SODIUM 75 MCG TABLET PO SCH (04:45)
[2022-03-08] MEDS: oxyCODONE/ACETAMINOPHEN 5mg/325mg TAB PO PRN ×3 (04:45→18:06)
[2022-03-08 06:45] LABS: Hematocrit (blood only) 25.2 % (37-47); Hemoglobin 8.2 g/dL (12.0-16.0)
--- NOTE | 2022-03-08 07:22 | Obstetrical Progress Note ---
Date of Service March 08, 2022 Assessment & Plan (1) Delivery by section: Plan: 31yo POD 2 s/p LTCS at 38 weeks. LTCS 2/2 arrest of labor. complicated by chronic HTN, GDMA2. -Continue routine care -Vitals reviewed- afebrile; BP mildly elevated overnight will recheck this morning, chronically on labetalol -GBS neg -Encourage ambulation, advance diet -Pain control with ibuprofen, acetaminophen, oxy PRN -Encourage -Hgb 8.5 --> 8.2 (03/08), cont. to monitor -abdominal binder for support -f/u in 6 weeks with OB after discharge (2) Hypertension: (3) Insulin controlled gestational diabetes mellitus (GDM) during : Admission and Anticipated Discharge Date Admission Date: March 05, 2022 Supervising Physician Co-Signing Physician Notes Resident Physician Supervision Note: I was present with Dr. Andersen during the history and exam. I discussed the case with the resident and agree with the findings and plan as documented in the note. Any exceptions or clarifications are listed here: pt doing well in post op recovery, day #2, eating, voiding and ambulating. ff 2 down nt nt calves. incision c/d/i. tr edema LE. routine care. breast/rhpos/ri. Documented By: Awilda Cervantes MD, FACOG Subjective Ambulation: yes Voiding: yes Passing Gas: yes BM: no Diet Tolerance: regular, denies N/V Lochia: small Feeding Type: Current Pain Level(1-10): 2 Review of Systems Review of Systems: Denies fevers/chills. Denies dyspnea, cough. Denies chest pain. Denies dysuria. Denies headache Denies back pain. Physical Exam Physical Exam: General: Alert, oriented, no acute distress Cardiac: Regular rate and rhythm, normal S1, S2. No murmurs appreciated. Respiratory: Clear to auscultation b/l with good air flow entry, symmetric chest rise and fall. No wheezes or crackles. No increased work of breathing or accessory muscle use Abdomen: Soft, mildly tender, nondistended. Fundus firm and palpable at 2 cm below umbilicus. Surgical incision clean, dry and intact without erythema, warmth or drainage. Bowel sounds appreciated. No guarding or rebound. Skin: No rashes or lesions Extremities: Warm, dry, well-perfused with capillary refill <2s b/l. No lower extremity edema, erythema or swelling. Negative Gray's sign b/l. Results & Data ([facility]) Vital Signs (Past 12 Hours) Vital Signs Temp Pulse Resp BP Pulse Ox 03/07/22 23:31 36.9 C 95 H 16 144/89 H 97 Resident Activity Tracking Resident Involvement: Resident Care Provided Care Provided: OB Delivery
[2022-03-08] MEDS ORDERED: bisacodyL 10 MG SUPP PR PRN (08:03)
[2022-03-08] MEDS: DOCUSATE SODIUM 100 MG CAP PO SCH ×2 (08:45→22:10)
[2022-03-08] MEDS: ESCITALOPRAM OXALATE 20 MG TAB PO SCH (08:45)
[2022-03-08] MEDS: SIMETHICONE 80 MG CHEW PO SCH ×4 (08:45→22:11)
[2022-03-08] MEDS: FERROUS SULFATE 325 MG TAB PO SCH (08:45)
[2022-03-08] MEDS: PRENATAL VITAMIN 1 TAB PO SCH (08:45)
[2022-03-08] MEDS: LABETALOL HCL 100 MG TAB PO SCH (08:45)
[2022-03-08] MEDS ORDERED: Nursing to Pharmacy Communication SCH (17:15)
[2022-03-09] MEDS: IBUPROFEN 600 MG TAB PO PRN ×4 (00:38→20:10)
[2022-03-09] MEDS: oxyCODONE/ACETAMINOPHEN 5mg/325mg TAB PO PRN ×4 (00:38→20:09)
[2022-03-09] MEDS: LEVOTHYROXINE SODIUM 75 MCG TABLET PO SCH (06:40)
[2022-03-09 07:31] LABS: Hematocrit (blood only) 26.9 % (37-47); Hemoglobin 8.7 g/dL (12.0-16.0)
[2022-03-09] MEDS: DOCUSATE SODIUM 100 MG CAP PO SCH ×2 (08:30→20:09)
[2022-03-09] MEDS: SIMETHICONE 80 MG CHEW PO SCH ×4 (08:30→20:09)
[2022-03-09] MEDS: LABETALOL HCL 100 MG TAB PO SCH (08:30)
[2022-03-09] MEDS: PRENATAL VITAMIN 1 TAB PO SCH (08:30)
[2022-03-09] MEDS: FERROUS SULFATE 325 MG TAB PO SCH (08:30)
[2022-03-09] MEDS: ESCITALOPRAM OXALATE 20 MG TAB PO SCH (08:31)
--- NOTE | 2022-03-09 08:34 | Obstetrical Progress Note ---
Date of Service March 09, 2022 Assessment & Plan (1) Delivery by section: Plan: 31yo POD 3 s/p LTCS at 38 weeks. LTCS 2/2 arrest of labor. complicated by chronic HTN, GDMA2. -Continue routine care -Vitals reviewed- afebrile -GBS neg -Encourage ambulation, advance diet -Pain control with ibuprofen, acetaminophen PRN -Encourage -Hgb 8.7, stable -abdominal binder for support (2) Hypertension: Plan: -BP mildly elevated but appropriate, chronically on labetalol -continue labetalol 100mg po daily -f/u 1 wk for BP check (3) Insulin controlled gestational diabetes mellitus (GDM) during : Admission and Anticipated Discharge Date Admission Date: March 05, 2022 Supervising Physician Co-Signing Physician Notes Resident Physician Supervision Note: I interviewed and examined the patient. Discussed with Dr. Andersen and agree with findings and plan as documented in the note. Any exceptions or clarifications are listed here: Documented By: Peggy Lopez MD, FACOG Subjective Ambulation: yes Voiding: yes Passing Gas: yes BM: no Diet Tolerance: regular, denies N/V Lochia: small Feeding Type: Current Pain Level(1-10): 2 Review of Systems Review of Systems: Denies fevers/chills. Denies dyspnea, cough. Denies chest pain. Denies dysuria. Denies headache Denies back pain. Physical Exam Physical Exam: General: Alert, oriented, no acute distress Cardiac: Regular rate and rhythm, normal S1, S2. No murmurs appreciated. Respiratory: Clear to auscultation b/l with good air flow entry, symmetric chest rise and fall. No wheezes or crackles. No increased work of breathing or accessory muscle use Abdomen: Soft, mild fundal tenderness, nondistended. Fundus firm and palpable at 2 cm below umbilicus. Surgical incision clean, dry and intact without erythema, warmth or drainage. Bowel sounds appreciated. No guarding or rebound. Skin: No rashes or lesions Extremities: Warm, dry, well-perfused with capillary refill <2s b/l. No lower extremity edema, erythema or swelling. Negative Gray's sign b/l. Results & Data ([facility]) Vital Signs (Past 12 Hours) Vital Signs Temp Pulse Resp BP Pulse Ox 03/09/22 08:20 37.1 C 86 18 142/90 H 03/08/22 23:00 37.2 C 89 20 125/78 97 Resident Activity Tracking Resident Involvement: Resident Care Provided Care Provided: OB Delivery
--- NOTE | 2022-03-13 08:06 | Discharge Summary ---
Date of Service March 13, 2022 Admission HPI Per Admitting Provider 31 y/o at 38 4/7 presents for IOL cHTN on meds. Also c/b A2GDM, obesity, hypothyroid. 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 SAB 2019 G2 current monthly cycles on metformin 02/2020 neg octest Denies hx STIs Admission Exam (Per Admitting) Genitourinary OB Exam Abdomen: + vertex (confirmed by BSUS) and + estimated weight (7- 8) Manual OB Exam: + cervical dilation 3 cm, + cervical effacement 50% and + station -2 OB Exam Monitor Tracing: + external FHT monitor used, + external uterine monitor used (irreg ctx) and + category I (130/mod/+accel/-decel) Discharge Data Procedures Performed Operation Date: 03/06/22 06:40 Actual Procedures p Primary Low Transverse Section in - Idania Medina MD Hospital Course (1) Delivery by section: (2) Gestational diabetes mellitus (GDM) affecting , antepartum: (3) Hypertension: 31 y/o at 38 5/7 wga began induction of labor 1 day ago for chronic hypertension on medications. was also complicated by insulin dependent gestational diabetes. Induction was begun with padilla bulb the evening prior and fell out prior to arrival to L&D. Pitocin was started on admission and she received an epidural for pain control. She underwent SROM and subsequent AROM of forebag. She did become painful and so received a re-dose of epidural however this markedly decreased blood pressure and so pitocin was discontinued to allow for recovery. Pitocin was restarted but epidural had to be replaced and again decel and discontinuation was noted. At this point she was noted to be 6cm. Pitocin was restarted and up to 6, however continued to have significant pain following the re-dose wearing off. Over the next 6 hours cervix remained unchanged. Given significant pain and failure to progress, pt opted for delivery. See operative report for details. Postoperative course was uncomplicated and she was discharged home on POD3 with plan for pp BP check Coding Level of Care Code None Diagnoses Delivery by section Gestational diabetes mellitus (GDM) affecting , antepartum O24.419 Hypertension I10
== END 2022-03-09 20:30 | disposition home or self-care (01) | DRG 788 ==
LOC: 4S1 07:29 → 4E2 03-06 11:23
DX: O76 Abnormality in fetal heart rate and rhythm complicating labor and delivery; O24.424 Gestational diabetes mellitus in childbirth, insulin controlled; F41.8 Other specified anxiety disorders; I95.9 Hypotension, unspecified; O77.0 Labor and delivery complicated by meconium in amniotic fluid; Z79.4 Long term (current) use of insulin; O99.892 Other specified diseases and conditions complicating childbirth; O69.81X0 Labor and delivery complicated by cord around neck, without compression, not applicable or unspecified; Z79.890 Hormone replacement therapy; O10.02 Pre-existing essential hypertension complicating childbirth; O99.52 Diseases of the respiratory system complicating childbirth; O99.344 Other mental disorders complicating childbirth; Z37.0 Single live birth; Z3A.38 38 weeks gestation of pregnancy; O99.214 Obesity complicating childbirth; Z79.899 Other long term (current) drug therapy; Z79.82 Long term (current) use of aspirin; E03.9 Hypothyroidism, unspecified; O62.2 Other uterine inertia; O99.284 Endocrine, nutritional and metabolic diseases complicating childbirth; J45.909 Unspecified asthma, uncomplicated

== ENCOUNTER 2024-08-30 09:14 | Inpatient (IN) ==
--- NOTE | 2024-08-16 13:11 | Anesthesiology Consultation ---
Date of Service August 16, 2024 Assessment & Plan (1) Encounter for pre-operative examination: - Infectious disease screening: Per assessment on 08/16/24- No known recent infectious disease contacts or current infectious disease symptoms. - General anesthesia with previous d/t unsuccessful neuraxial anesthesia per patient. (03/06/2022): Epidural > GA- Glidescope#4, ETT 7 at [facility] (see anesthesia record for details). 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 History Surgery Operation Date: 08/30/24 11:40 Proposed Procedures p Section (Delivery of Baby Through Abdominal Incision) - Rafael Barraza MD Height/Weight Height: 5 ft 5.5 in Weight: 119.295 kg Allergies Allergy/AdvReac Type Severity Reaction Status Date / Time No Known Allergies Allergy Verified 08/16/24 12:37 Medications Home Medications Medication Instructions Recorded Confirmed Last Taken albuterol sulfate 90 mcg/actuation 1 - 2 puff inhalation BID PRN 06/09/23 08/16/24 Unknown aerosol inhaler Shortness Of Breath WITH COLDS metformin 500 mg tablet,extended 1,000 mg PO QPM 06/09/23 08/16/24 06/08/23 release 24 hr vit no.95-ferrous 1 tab PO DAILY 06/09/23 08/16/24 06/08/23 fumarate 28 mg-folic acid 800 mcg tablet () labetalol 100 mg tablet 100 mg PO BID #180 tabs 02/11/24 08/16/24 Unknown acetone (urine) test (Ketone Urine #50 ea 02/27/24 08/12/24 Unknown Test strips) blood sugar diagnostic (OneTouch #150 ea 02/27/24 08/12/24 Unknown Verio test strips) lancets 33 gauge (OneTouch Delica #150 ea 02/27/24 08/12/24 Unknown Plus Lancet) pen needle, diabetic 32 gauge x #100 ea 03/30/24 08/12/24 Unknown /32" (BD Ultra-Fine Ely Pen Needle) levothyroxine 50 mcg tablet See Rx Instructions .Route 08/09/24 08/16/24 Unknown .COMPLEX #30 tabs aspirin 81 mg tablet,delayed 81 mg PO QDD 08/16/24 08/16/24 Unknown release escitalopram oxalate 20 mg tablet 20 mg PO QAM 08/16/24 08/16/24 Unknown insulin NPH isoph U-100 human 100 12 unit subcut QPM 08/16/24 08/16/24 Unknown unit/mL (3 mL) subcutaneous pen (Novolin N FlexPen) Past Medical History Medical History Anxiety Asthma Depression Gestational diabetes History of COVID-17 Jun 2024, symptoms resolved History of PCOS Hypertension Hypothyroidism Prediabetes Past Family History Family History Father Hypertension Mother Anxiety Pre-diabetes Thyroid disease Grandfather Myocardial infarction Grandmother Myocardial infarction Brother No problems noted. Son No problems noted. Denies family history of Ovarian cancer Prostate cancer Breast cancer Colorectal cancer Past Surgical History Surgical History H/O wisdom tooth extraction History of anesthesia reaction "had to be put under general for last , had two epidurals and spinal block that failed" History of incision and drainage Pilonidal cyst S/P section x1 Social History Smoking Status: Never smoker Do You Dip or Chew Tobacco: No Hx Alcohol Use: No Hx Substance Use: No substance use type: does not use Lab Results Anesthesia Preop Results Results Anesthesia Widget: Hgb 11.5 g/dl (12.0-16.0) L 07/08/24 Hct 35.6 % (37.0-47.0) L 07/08/24 TSH 1.22 mIU/L 08/03/24
--- NOTE | 2024-08-30 10:03 | History & Physical Report ---
Date of Service August 30, 2024 Assessment & Plan (1) AMA (advanced maternal age) multigravida 35+: Plan: Balbina is a 34-year-old presents for scheduled repeat section as detailed per HPI. Consent forms were previously reviewed and signed in clinic. Denied any concerns today. (2) Gestational diabetes mellitus (GDM) requiring insulin: (3) Hypothyroidism affecting : (4) Chronic hypertension affecting : (5) History of : Admission and Anticipated Discharge Date Admission Date: August 30, 2024 History of Present Illness Primary Care Provider: Keyona Pyle MD Balbina is a 34-year-old G3, P1 presents for scheduled repeat section. Has a history of 1 prior uncomplicated . complicated by: Hypothyroid *Check TFTs Q4wks CHTN on Meds *Baby ASA daily start 12-28 wks, continue until delivery *Weekly NST's @32wks and twice wkly @36 wks *Serial Growth US @ 24 (doppler only if abnml) *Baseline 24hr urine (additional PRN)------115.5 *Weekly TIARRA's @ 32wk(If on Meds) *Deliver [id number] (If on Meds) *Deliver [id number] (Not on Meds) *TAKING LABETALOL 100MG BID* GDM on insulin *Wkly NSTs @32wks and Twice wkly @36wks *Serial growth US @24wks *Deliver by [facility] AMA *Weekly NSTs @ 36 weeks Obesity (BMI 40 and higher @ beginning of ) *Growth US @ 32wks *Weekly NSTs @ 34wks *BMI 40 or greater offer detailed/level II anatomy at [facility] *BMI 40 or above offer delivery by [facility]. *BMI 50 or greater scheduled detailed/level II anatomy at [facility] Prior C/Sec Planning [id number] 08/30/24 Dr. Barraza, Dr. Kirkland assist OB Labs: Blood Type O Positive 02/02/24 Antibody Screen NEGATIVE 02/02/24 Hgb 11.5 g/dl (12.0-16.0) L 07/08/24 Hct 35.6 % (37.0-47.0) L 07/08/24 MCV 89.2 fL (80.0-100.0) 02/02/24 Plt Count 391 K/uL (130-400) 02/02/24 Rubella IgG Antibody Non Immune (Immune) L 02/02/24 RPR Nonreactive (Nonreactive) 02/02/24 Treponema pallidum Ab Negative (Negative) 07/08/24 Hep Bs Antigen Neg (Neg) 08/20/21 Hep Bs Antigen NON-REACTIVE (NON-REACTIVE) 02/02/24 Hepatitis C Antibody Neg (Neg) 08/20/21 Hepatitis C Ab (EIA) NON-REACTIVE (NON-REACTIVE) 02/02/24 HIV 1&2 Ab/P24 Ag 4thGn Neg (Neg) 08/20/21 HIV (1&2) Ag & Ab Conf NON-REACTIVE (NON-REACTIVE) 02/02/24 Maternal Serum AFP 33.2 ng/mL 03/29/24 OB Optional Labs: Chlamydia trachomatis RNA Not Detected (NotDetected) 02/02/24 Neisseria gonorrhoeae RNA Not Detected (NotDetected) 02/02/24 Thyroid Stimulating Hormone (TSH) 1.22 mIU/L 08/03/24 Alpha Fetoprotein Triple Screen SEE NOTE 03/29/24 Labs Reviewed: neg cf/sma with prior cfdna-low risk--mln Allergies Allergy/AdvReac Type Severity Reaction Status Date / Time No Known Allergies Allergy Verified 08/30/24 09:49 Home Medications Medication Instructions Recorded Confirmed Type albuterol sulfate 90 mcg/actuation 1 - 2 puff inhalation BID PRN 06/09/23 08/23/24 History aerosol inhaler Shortness Of Breath WITH COLDS vit no.95-ferrous 1 tab PO DAILY 06/09/23 08/30/24 History fumarate 28 mg-folic acid 800 mcg tablet () labetalol 100 mg tablet 100 mg PO BID #180 tabs 02/11/24 08/30/24 Rx acetone (urine) test (Ketone Urine #50 ea 02/27/24 08/23/24 Rx Test strips) blood sugar diagnostic (OneTouch #150 ea 02/27/24 08/23/24 Rx Verio test strips) lancets 33 gauge (OneTouch Delica #150 ea 02/27/24 08/23/24 Rx Plus Lancet) pen needle, diabetic 32 gauge x #100 ea 03/30/24 08/23/24 Rx " (BD Ultra-Fine Ely Pen Needle) levothyroxine 50 mcg tablet See Rx Instructions .Route 08/09/24 08/30/24 Rx .COMPLEX #30 tabs aspirin 81 mg tablet,delayed 81 mg PO QDD 08/16/24 08/30/24 History release escitalopram oxalate 20 mg tablet 20 mg PO QAM 08/16/24 08/30/24 History insulin NPH isoph U-100 human 100 12 unit subcut QPM 08/16/24 08/30/24 History unit/mL (3 mL) subcutaneous pen (Novolin N FlexPen) Patient History Medical History Anxiety Asthma Depression Gestational diabetes History of COVID-17 Jun 2024, symptoms resolved History of PCOS Hypertension Hypothyroidism Prediabetes Surgical History H/O wisdom tooth extraction History of anesthesia reaction "had to be put under general for last , had two epidurals and spinal block that failed" History of incision and drainage Pilonidal cyst S/P section x1 Family History Father Hypertension Mother Anxiety Pre-diabetes Thyroid disease Grandfather Myocardial infarction Grandmother Myocardial infarction Brother No problems noted. Son No problems noted. Denies family history of Ovarian cancer Prostate cancer Breast cancer Colorectal cancer Social History (Updated 08/30/24 @ 09:48 by Gale Ying RN) Smoking Status: Never smoker Second Hand Exposure: No; Do You Dip or Chew Tobacco: No; Tobacco Cessation Education Requested by Patient: No Hx Alcohol Use: No Hx Substance Use: No Preferred Language: [place] Communication Ability: Effective Visual Impairment: No Limitations Hearing Ability: Normal Nailer Operator Required: No Beliefs That Will Affect Care: None marital status: marital status details: Isaak Martinez (36) [phone] Current Living Situation: Spouse Current Living Situation Comment: Spouse and son, 1 cat- changing litter current occupational status: employed 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523 Trimester: third trimester Gestational diabetes mellitus (GDM) requiring insulin O24.414 Hypothyroidism affecting in third trimester O99.283; E03.9 Trimester: third trimester Chronic hypertension affecting O10.919 History of Z98.891 (1) AMA (advanced maternal age) multigravida 35+ Trimester: third trimester Qualified Code(s): O09.523 - Supervision of elderly multigravida, third trimester (3) Hypothyroidism affecting Trimester: third trimester Qualified Code(s): O99.283 - Endocrine, nutritional and metabolic diseases complicating , third trimester; E03.9 - Hypothyroidism, unspecified
[2024-08-30] MEDS: ACETAMINOPHEN 500 MG TAB PO SCH (10:52)
[2024-08-30] MEDS ORDERED: SODIUM CHLORIDE 0.9% 50 ML IV PRN (12:31)
[2024-08-30] MEDS ORDERED: SODIUM CHLORIDE 0.9% 100 ML IV PRN (12:31)
[2024-08-30] MEDS: ceFAZolin 3,000 MG/72.5 ML BAG IV SCH (12:52)
[2024-08-30] MEDS ORDERED: MoRPHine SULFATE PF 1 MG/ML 10 ML AMP/VIAL ONE (13:14)
[2024-08-30] MEDS ORDERED: OXYTOCIN 10 UNITS/ML VIAL ONE ×3 (13:16→13:17)
[2024-08-30] MEDS ORDERED: ONDANSETRON INJ 2 MG/ML 2 ML VIAL ONE ×3 (13:16→13:17)
[2024-08-30] MEDS ORDERED: KETOROLAC 30 MG/ML VIAL ONE (14:07)
[2024-08-30] MEDS ORDERED: diphenhydrAMINE Capsule 25 MG CAP PO PRN (14:35)
[2024-08-30] MEDS ORDERED: BENZOCAINE 20% SPRY 85 APPLN/85 GM CAN EXT PRN (14:35)
[2024-08-30] MEDS ORDERED: HYDROmorphone INJ 0.5 MG/0.5 ML SYR IV PRN ×2 (14:35→14:45)
[2024-08-30] MEDS ORDERED: PROMETHAZINE 12.5 MG/50.5 ML BAG IV PRN (14:35)
[2024-08-30] MEDS ORDERED: MAGNESIUM HYDROXIDE SUSP 30 ML UDC PO PRN (14:35)
[2024-08-30] MEDS ORDERED: HYDROCORTISONE ACETATE 25 MG SUPP PR PRN (14:35)
[2024-08-30] MEDS ORDERED: ONDANSETRON INJ 2 MG/ML 2 ML VIAL IV PRN (14:35)
[2024-08-30] MEDS ORDERED: CALCIUM CARBONATE 500 MG CHEWABLE TAB PO PRN (14:35)
[2024-08-30] MEDS ORDERED: diphenhydrAMINE 50 MG/ML VIAL IV PRN (14:35)
--- NOTE | 2024-08-30 14:35 | Post Operative Brief Note ---
PG Immediate Post Op with CF Date of Surgery August 30, 2024 Pre & Post Diagnosis Operation Date: 08/30/24 11:40 Pre-Op Diagnosis: 1. AMA 2. Previous c/section 3. Term 4. GDM on insulin Post-Op Diagnosis: Same I identified the patient and participated in the time-out.: Yes Procedure Operation Date: 08/30/24 11:40 Actual Procedures p Section with the of a live male child at 1347. - Rafael Barraza MD Surgeon Rafael Barraza MD Instructional Technology Specialist Dr Cervantes Estimated Blood Loss 383 Findings Consistent with Post-Op Diagnosis Specimens Specimen Description: A: Placenta-hold B: Cord Blood Drains Dixon Catheter (Dixon placed after spinal placed; clear yellow urine noted upon insertion. ) OB Procedure charges OB Charges 26244
[2024-08-30] MEDS ORDERED: NALOXONE HCL 0.08 MG in SYRINGE 1.8 ML IV PRN (14:45)
[2024-08-30] MEDS ORDERED: NALOXONE HCL 1 MG in SODIUM CHLORIDE 0.9% 1,000 ML IV PRN (14:45)
[2024-08-30] MEDS ORDERED: NO NARCOTICS OR SEDATIVES SCH (14:45)
[2024-08-30] MEDS ORDERED: MoRPHine SULFATE PF 1 MG/ML 10 ML AMP/VIAL INT SPINAL ONE (14:45)
[2024-08-30] MEDS ORDERED: oxyCODONE HCL IR 5 MG TAB (IMMEDIATE RELEASE) PO PRN (14:45)
[2024-08-30] MEDS ORDERED: MEPERIDINE HCL 25 MG/ML CARP/VIAL IV PRN (14:45)
[2024-08-30] MEDS ORDERED: NALOXONE HCL 0.4 MG/1 ML VIAL/CARP IV PRN (14:45)
[2024-08-30] MEDS ORDERED: PROMETHAZINE 6.25 MG/50.25 ML BAG IV PRN (14:45)
[2024-08-30] MEDS ORDERED: DC INTRASPINAL MORPHINE SCH (14:45)
[2024-08-30] MEDS ORDERED: ePHEDrine sulfate 50 MG/ML AMP IV PRN (14:45)
[2024-08-30] MEDS ORDERED: NALBUPHINE HCL INJ 10 MG/ML AMP IV PRN (14:45)
[2024-08-30] MEDS ORDERED: MoRPHine SULFATE 2 MG/ML CARP IV PRN (14:45)
--- NOTE | 2024-08-30 14:45 | Anesthesiology Progress Note ---
Date of Service August 30, 2024 Anesthesia Post Procedure Vital Signs Vital Signs: Pulse BP Pulse Ox 08/30/24 14:41 77 100 08/30/24 14:39 83 121/67 08/30/24 09:40 79 131/87 Transfer of Care Handoff Completed per policy Notes Mental Status: alert / awake / arousable Nausea / Vomiting: adequately controlled Pain: adequately controlled Airway Patency, RR, SpO2: stable & adequate BP & HR: stable & adequate Hydration State: stable & adequate Neuraxial Anesthesia: was administered and sensory block is resolving Anesthetic Complications: no major complications apparent and Pt Satisfied with anesthetic care
[2024-08-30] MEDS: ONDANSETRON INJ 2 MG/ML 2 ML VIAL IV PRN (17:42)
[2024-08-30] MEDS: SIMETHICONE 80 MG CHEW PO SCH (18:43)
[2024-08-30] MEDS: CITRIC ACID/SODIUM CITRATE 15 ML UDC PO SCH (20:03)
[2024-08-30] MEDS: LACTATED RINGER'S 1,000 ML IV SCH ×2 (20:03→20:04)
[2024-08-30] MEDS: DIPHTHER/TETAN/PERTUS Vaccine (Tdap, Adol/Adult) 0.5mL IM ONE (20:04)
[2024-08-30] MEDS: OXYTOCIN 20 UNITS/LR 1,002 ML IV SCH (20:05)
[2024-08-30] MEDS: KETOROLAC 30 MG/ML VIAL IV SCH (20:29)
[2024-08-30] MEDS: DOCUSATE SODIUM 100 MG CAP PO SCH (20:29)
--- NOTE | 2024-08-30 22:24 | Operative Report ---
Post Operative Report Pre & Post Diagnosis Operation Date: 08/30/24 11:40 Pre-Op Diagnosis: 1. AMA 2. Previous c/section 3. Term 4. GDM on insulin Post-Op Diagnosis: Same I identified the patient and participated in the time-out.: Yes Procedure Operation Date: 08/30/24 11:40 Actual Procedures p Section with the of a live male child at 1347. - Rafael Barraza MD Surgeon Rafael Barraza MD Bag Making Machine Tender Dr Cervantes Quantitative Blood Loss (QBL) See chart Findings Consistent with Post-Op Diagnosis Specimens None Description of Procedure Patient was taken the operating room after consent was ensured. Upon presentation she was properly identified. Anesthesia obtained and patient prepped and draped in normal sterile fashion. Preprocedural timeout was performed. A Pfannenstiel incision was made with a knife. This was carried down to underlying fascia with the Bovie and blunt dissection. The fascia was nicked at the midline with a knife and extended laterally with pickaaliyah and Handley scissors. The fascia was then dissected off the rectus muscles using blunt dissection both superiorly and inferiorly. Abdominal cavity was entered bluntly and placed on stretch to provide adequate room for delivery. There is noted to be moderate lower uterine segment adhesions. Adhesions were bluntly dissected. A bladder flap was created and a low transverse uterine incision was made with a knife. Head of the was delivered through the hysterotomy followed by body and shoulders. noted to be vigorous at time of delivery and a 30 second delayed cord clamping was initiated after which the cord was double clamped and cut. Baby taken to the waiting nursery staff. Attention was turned to delivery of the placenta which delivered intact with three-vessel cord gentle cord traction. Uterus was exteriorized and several passes were made to remove any remaining membranes with a dry lap. Hysterotomy was reapproximated with 0 Vicryl continuous running lock stitch with a second imbricating layer performed. There is noted be continued bleeding at the noted adhesion site and multiple figure of 8 sutures slowed but did not fully stop the bleeding. After the last pass with a [id number] stitch very light bleeding was noted and Floseal applied. Hemostasis then noted. Posterior cul-de-sac cleaned of clots and debris's. Uterus returned maternal abdomen and right left paracolic gutters cleaned of clots and debris's. Hysterotomy remained hemostatic. Subcutaneous fascia and muscle layers inspected noted be hemostatic. Fascia was reapproximated 0 Vicryl continuous running stitch. Subcutaneous layer reapproximated 2 layers using 2-0 plain. Skin reapproximated with 3-0 Vicryl and continuous subcuticular stitch. Dermabond placed on top. Both mother and in stable condition at the completion of the case. Needle sponge and instrument counts correct at the completion of the case. No complications noted and blood loss per QBL. I attest to the content of the Intraoperative Record and any orders documented therein. Any exceptions are noted below. OB Procedure Charges [id number]
[2024-08-31] MEDS: ACETAMINOPHEN 325 MG TAB PO SCH (02:03)
[2024-08-31] MEDS: diphenhydrAMINE 50 MG/ML VIAL IV PRN (04:00)
--- NOTE | 2024-08-31 06:02 | Obstetrical Progress Note ---
Date of Service August 31, 2024 Assessment & Plan (1) examination following delivery: Plan Encourage ambulation Encourage breast feeding Monitor urine output, bladder scan if needed Continue levothyroxine 50mcg Pain meds as needed Anticipate DC to home on 09/01/24 Admission and Anticipated Discharge Date Admission Date: August 30, 2024 Supervising Physician Co-Signing Physician Notes Patient seen with resident and agree with the above findings and plan Subjective Pt is 34 yo post-op day 1 s/p CS at 38w4d. complicated by GDM, hypothyroidism, chronic HTN and obesity. Ambulation:In and out of room Voiding: Dixon removed early this morning. She has voided x 2, but some difficulty emptying her bladder. Passing gas: no BM: no Diet tolerance:regular diet Lochia:bloody, no clots Feeding type: breast Current pain level: 3 /10 improved with ibuprofen Resting comfortably this morning in NAD. Reports nausea and vomiting after procedure, but has been able to eat last night. Denies MONTERROSO, CP, SOB, N/V/D, LE pain/swelling. Review of Systems Review of Systems: As per HPI Physical Exam 2 Constitutional: WD/WN, vitals as above Respiratory: normal respiratory effort, lungs clear to auscultation Cardiovascular: RRR, no murmur, no edema Gastrointestinal (Abdomen): normal bowel sounds, soft, nontender, no hepatosplenomegaly Uterine fundus firm and at level of umbilicus Incision is clean and dry Neurologic: PERRL, EOMI, accommodation nl, no face palsy, no dysarthria Moving all 4 extremities on command Psychiatric: A+Ox3, euthymic affect Results & Data Vital Signs (Past 12 Hours) Vital Signs Temp Pulse Resp BP Pulse Ox O2 Del Method 08/31/24 05:00 16 99 08/31/24 04:00 14 97 08/31/24 03:30 36.9 C 85 16 123/85 97 Room Air 08/31/24 03:00 16 97 08/31/24 02:00 16 98 08/31/24 01:20 16 95 08/31/24 00:00 14 96 08/30/24 23:25 16 97 08/30/24 23:25 36.8 C 80 16 130/85 97 Room Air 08/30/24 22:00 16 100 08/30/24 21:00 16 100 12/02/24 20:00 16 100 08/30/24 19:15 36.6 C 82 16 125/86 125 H Room Air 08/30/24 19:15 16 100 08/30/24 18:12 36.4 C L 74 16 137/86 100 Room Air Resident Activity Tracking Resident Involvement: Resident Care Provided Care Provided: Adult Hospital Medicine
[2024-08-31 06:21] LABS: Basophils # (auto) 0.04 K/uL (0.00-0.20); Basophils % (auto) 0.4 %; Eosinophils # (auto) 0.13 K/uL (0.00-0.50); Eosinophils % (auto) 1.4 %; Hematocrit (blood only) 29.3 % (37.0-47.0); Hemoglobin 9.6 g/dl (12.0-16.0); Immature Granulocytes # (auto) 0.07 K/uL (0.01-0.20); Immature Granulocytes % (auto) 0.8 %; Lymphocytes # (auto) 1.73 K/uL (1.20-3.40); Lymphocytes % (auto) 18.7 %; Mean Corpuscular Hgb Conc 32.8 g/dL (32.0-36.0); Mean Corpuscular Volume 88.5 fL (80.0-100.0); Mean Platelet Volume 9.4 fL (9.4-12.4); Monocytes % (auto) 6.5 %; Neutrophils # (auto) 6.66 K/uL (1.40-6.50); Neutrophils % (auto) 72.2 %; Platelet Count 221 K/uL (130-400); RDW Coefficient of Variation 13.7 % (11.5-14.5); RDW Standard Deviation 44.1 fL (36.4-46.3); Red Blood Count 3.31 M/uL (4.20-5.40); White Blood Count 9.23 K/ul (4.8-10.8)
[2024-08-31] MEDS: FERROUS SULFATE 325 MG TAB PO SCH (08:12)
[2024-08-31] MEDS: PRENATAL VITAMIN 1 TAB PO SCH (08:14)
[2024-08-31] MEDS ORDERED: KETOROLAC 30 MG/ML VIAL IV PRN (20:00)
[2024-08-31] MEDS: bisacodyL 5 MG TABEC PO SCH (20:12)
[2024-08-31] MEDS: IBUPROFEN 600 MG TAB PO SCH (20:13)
[2024-08-31] MEDS: LABETALOL HCL 100 MG TAB PO SCH (20:15)
[2024-09-01] MEDS: oxyCODONE HCL IR 5 MG TAB (IMMEDIATE RELEASE) PO PRN (00:02)
--- NOTE | 2024-09-01 05:19 | Obstetrical Progress Note ---
Date of Service September 01, 2024 Assessment & Plan (1) examination following delivery: Plan Encourage ambulation Trial of belly band today to assist with pain control Continue levothyroxine 50mcg Pain meds as needed Anticipate DC to home on 09/02/24 Admission and Anticipated Discharge Date Admission Date: August 30, 2024 Supervising Physician Co-Signing Physician Notes Resident Physician Supervision Note: I interviewed and examined the patient. Discussed with Dr. Bashir and agree with findings and plan as documented in the note. Any exceptions or clarifications are listed here: POD2 s/p rCS. Some pain control issues, but working on staying on top of it. Will try belly band, meeting all milestones otherwise. VSS, exam benign, incision c/d/i. Continue routine care Documented By: Idania Medina MD Subjective Pt is 34 yo post-op day 2 s/p CS at 38w4d. complicated by GDM, hypothyroidism, chronic HTN and obesity. Ambulation:In and out of room Voiding: voiding normally Passing gas: yes BM: no Diet tolerance:regular diet Lochia:bloody, no clots Feeding type: formula Current pain level: 3-5 /10 improved with Toradol. Pain was increased last night and not well controlled with mortin and tylenol. Resting comfortably this morning in NAD. Denies MONTERROSO, CP, SOB, N/V/D, LE pain/swelling. Review of Systems Review of Systems: As per HPI Physical Exam Constitutional: WD/WN, vitals as above Respiratory: normal respiratory effort, lungs clear to auscultation Cardiovascular: RRR, no murmur, no edema Gastrointestinal (Abdomen): normal bowel sounds, soft, nontender, no hepatosplenomegaly Uterine fundus is firm and 1 cm below umbilicus Neurologic: PERRL, EOMI, accommodation nl, no face palsy, no dysarthria Psychiatric: A+Ox3, euthymic affect Results & Data Vital Signs (Past 12 Hours) Vital Signs Temp Pulse Resp BP O2 Del Method 09/01/24 00:00 36.6 C 94 H 16 134/82 Room Air 08/31/24 20:00 36.8 C 96 H 14 136/86 Room Air Resident Activity Tracking Resident Involvement: Resident Care Provided Care Provided: Adult [facility] Medicine
[2024-09-01 06:25] LABS: Hematocrit (blood only) 28.7 % (37.0-47.0); Hemoglobin 9.3 g/dl (12.0-16.0)
[2024-09-01] MEDS: ESCITALOPRAM OXALATE 20 MG TAB PO SCH (09:22)
[2024-09-01] MEDS: LEVOTHYROXINE SODIUM 50 MCG TABLET PO SCH (11:05)
[2024-09-01] MEDS ORDERED: bisacodyL 10 MG SUPP PR PRN (14:36)
[2024-09-01] MEDS: IBUPROFEN 600 MG TAB PO PRN (20:09)
[2024-09-01] MEDS: SENNA 8.6 MG TAB PO PRN (21:13)
[2024-09-02] MEDS: ACETAMINOPHEN 325 MG TAB PO PRN (02:14)
--- NOTE | 2024-09-02 05:49 | Obstetrical Progress Note ---
Date of Service September 02, 2024 Assessment & Plan (1) examination following delivery: Plan Encourage ambulation Continue belly band today to assist with pain control Continue levothyroxine 50mcg Pain meds as needed Anticipate DC to home today Admission and Anticipated Discharge Date Admission Date: August 30, 2024 Supervising Physician Co-Signing Physician Notes Resident Physician Supervision Note: I interviewed and examined the patient. Discussed with Dr. Bashir and agree with findings and plan as documented in the note. Any exceptions or clarifications are listed here: Doing well. Better pain control. Meeting goals. Baby may have to stay for elevated billirubin. Will check in later today. Instructions reviewed. Documented By: Christel Hightower MD, FACOG Subjective Pt is 34 yo post-op day 3 s/p CS at 38w4d. complicated by GDM, hypothyroidism, chronic HTN and obesity. Ambulation:In and out of room Voiding: voiding normally Passing gas: yes BM: no Diet tolerance:regular diet Lochia:bloody, no clots Feeding type: formula Current pain level: 3-4 /10 improved with Toradol and Tylenol/Motrin Resting comfortably this morning in NAD. Denies MONTERROSO, CP, SOB, N/V/D, LE pain/swelling. Review of Systems Review of Systems: As per HPI Physical Exam Constitutional: WD/WN, vitals as above Respiratory: normal respiratory effort, lungs clear to auscultation Cardiovascular: RRR, no murmur, no edema Gastrointestinal (Abdomen): normal bowel sounds, soft, nontender, no hepatosplenomegaly Uterine fundus is firm and 2 cm below umbilicus Neurologic: PERRL, EOMI, accommodation nl, no face palsy, no dysarthria Psychiatric: A+Ox3, euthymic affect Results & Data Vital Signs (Past 12 Hours) Vital Signs Temp Pulse Resp BP Pulse Ox O2 Del Method 09/01/24 23:10 37.0 C 84 18 129/83 96 Room Air 09/01/24 19:30 36.9 C 80 16 136/84 96 Room Air
[2024-09-02 10:03] VITALS: RESP 16; TEMP 98.4
[2024-09-02 13:16] VITALS: BP 135/83; PULSE 83; O2SAT 95
== END 2024-09-02 12:45 | disposition home or self-care (01) | DRG 787 ==
LOC: 4S1 09:14 → EDSTATUS 10:10 → 4S1 14:21 → 4E2 17:34